=== PATIENT | female | born 1960 | race African-American/Black ===

== ENCOUNTER 2018-09-18 07:22 | Inpatient (IN) | payer OTHER ==
[~2018-09-18] VITALS: Ht 170.2 cm; Wt 72.5 kg
[2018-09-18 10:00] VITALS: BP 118/74; PULSE 68; RESP 18; Ht 170.2 cm; Wt 72.5 kg
[2018-09-18] MEDS ORDERED: HYDROmorphONE 0.5 MG/0.5 ML SYG IM STA (11:01)
[2018-09-18] MEDS ORDERED: HYDROmorphONE 0.5 MG/0.5 ML SYG IV STA (11:02)
[2018-09-18] MEDS ORDERED: ZOLPIDEM 5 MG TAB PO PRN (11:30)
[2018-09-18] MEDS ORDERED: DIPHENHYDRAMINE 50 MG INJ IV ONE (11:30)
[2018-09-18] MEDS ORDERED: ONDANSETRON 4 MG INJ IV PRN (11:30)
[2018-09-18] MEDS ORDERED: ACETAMINOPHEN 325 MG TAB PO PRN (11:30)
--- NOTE | 2018-09-18 11:36 | HP ---
Date/Time of Note Date/Time of Note DATE: 09/18/18 TIME: 11:27 Assessment/Plan VTE Prophylaxis SCD applied (from Nsg): Yes SCD contraindicated: low risk/ambulating Pharmacological prophylaxis: NA/contraindicated Pharm contraindication: bleeding Lines/Catheters IV Catheter Type (from Nrsg): Saline Lock Assessment/Plan Hospital Course 57-year-old female who presented with severe rectal pain and mild rectal b leeding and concern for rectal prolapse currently managed as follows: 1. Severe rectal pain secondary to opioid associated constipation 2. Subsequent rectal prolapse versus extrusion of large hemorrhoid 3. Hypertension, chronic with fair control 4. Recent ankle fracture Plan: We will stabilize the patient with pain control, give IV hydration to hopefully further rehydrate her to help with her stool consistency, also start her on stool softeners and fiber therapy. GI consultation to evaluate prolapse versus hemorrhoid, supportive care. Further interventions per course HPI/ROS Admit Date/Time Admit Date/Time Sep 18, 2018 at 09:27 Hx of Present Illness Pleasant 57-year-old female with a past medical history of high blood pressure, chronic hemorrhoids since her 30s, and jitteriness, who due to her natural twitching sustained a fall and ended up with an ankle fracture a few weeks ago. She has a large splint/cast on her right lower extremity and was put on opioid pain medicine for comfort due to the fracture. Unfortunately she developed severe constipation from that. Last night while she was in the bathroom trying to have a bowel movement, she states that her stool felt like a rock, and she was straining a lot and suddenly she felt a pop that was associated with severe pain and she also started noticing some bleeding in the bathroom. She called the nurse associated with her insurance company who suggested that she go to the emergency room. At the emergency room she was found to have protrusion from her rectum concerning for rectal prolapse and due to insurance reasons, she was referred to us for continued management and supportive care. At this time she is just complaining of severe rectal pain. She denies fever, denies vomiting, denies abdominal pain, denies chest pain or passing out episodes. She denies headaches or visual changes. ROS 12 point review if systems was done and pertinent findings are as noted. PMH/Family/Social Past Medical History * HTN * hemorrhoids * Recent R ankle fracture Medications Current Medications Diphenhydramine HCl (Benadryl) 25 mg ONCE ONCE IV ; Start 09/18/18 at 11:30; Stop 09/18/18 at 11:31; Status UNV Hydromorphone HCl (Dilaudid) 0.5 mg ONCE STAT IV ; Start 09/18/18 at 11:02; Stop 09/18/18 at 11:03; Status UNV Dextrose/Sodium Chloride 1,000 ml @ 80 mls/hr [id number] IV ; Start 09/18/18 at 11:20; Stop 09/19/18 at 12:19; Status UNV Ondansetron HCl (Zofran Inj) 4 mg Q6H PRN IV NAUSEA/VOMITING; Start 09/18/18 at 11:30; Status UNV Acetaminophen (Tylenol Tab) 650 mg Q6H PRN PO .PAIN 1-3 OR TEMP; Start 09/18/18 at 11:30; Status UNV Hydromorphone HCl (Dilaudid) 0.5 mg Q4H PRN IV .SEVERE PAIN 7-10; Start 09/18/18 at 11:30; Status UNV Docusate Sodium (Colace) 250 mg DAILY PO ; Start 09/18/18 at 11:30; Status UNV Zolpidem Tartrate (Ambien) 5 mg QHS PRN PO .INSOMNIA; Start 09/18/18 at 11:30; Status UNV Famotidine (Pepcid) 20 mg Q12 PO ; Start 09/18/18 at 21:00; Status UNV Polyethylene Glycol (Miralax) 17 gm DAILY PO ; Start 09/18/18 at 11:30; Status UNV Coded Allergies: morphine (Verified Allergy, Mild, 09/18/18) ITCHING Past Surgical History Past Surgical Hx: no surgical history Family History Significant Family History: no pertinent family hx Social History Alcohol Use: occasionally Smoking Status: Never smoker Drug Use: none Exam/Review of Systems Vital Signs Vitals Vital Signs Date Temp Pulse Resp B/P (MAP) Pulse Ox O2 O2 Flow FiO2 Time Delivery Rate 09/18/18 98.3 68 18 118/74 97 Room Air 10:00 (89) Exam Constitutional: alert, oriented Psych: anxiety Head: normocephalic Eyes: PERRL ENMT: mucosa pink and moist Neck: supple Respiratory: clear to auscultation Cardiovascular: regular rate and rhythm, nl pulses Gastrointestinal: soft, non-tender, bowel sounds, other Genitourinary - Female: nl adnexae, nl external genitalia BRIDGETTE LEÓN Sep 18, 2018 11:36
--- NOTE | 2018-09-18 12:47 | CONS ---
Assessment/Plan Assessment/Plan Hospital Course (Demo Recall) Summary Assessment and Plan: Assessment: Rectal prolapse Rectal pain 2/2 to above HTN Recent ankle facture 09/07 on norco at home Questionable history of hepatitis C Plan: Recommend surgical consult for reduction of rectal prolapse Questionable hx of Hepatitis- while in house will order hepatitis panel- if positive, pt to f/u with GI for possible treatment NPO for now- when diet starts will add daily fiber to prevent constipation Patient seen in collaboration with Dr. Rosario CC: NATHALIE ROSARIO ; Consultation Date/Type/Reason Admit Date/Time Sep 18, 2018 at 09:27 Date of Consultation: Sep 18, 2018 Type of Consult GI Reason for Consultation Rectal pain- Hemorrhoids vs rectal prolapse Date/Time of Note DATE: 09/18/18 TIME: 12:31 Hx of Present Illness 57-year-old female past medical history of hypertension and questionable hepatitis C who presented to the hospital with complaints of rectal pain. Patient states she recently fractured her ankle and was taking narcotic medication which subsequently caused constipation after attempting to go the bathroom with large amounts of pushing patient heard a pop and noted acute rectal pain she presented to [facility] but there she was diagnosed with rectal prolapse she was evaluated and manual rectal prolapse reduction was attempted at bedside however this was unsuccessful patient was deemed stable and transferred to [facility] for further evaluation. At time evaluation patient is resting in bed with rectal prolapse is noted on examination patient. Pain is currently being covered with pain medication she denies nausea/vomiting or abdominal pain. 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 Additionally with notes from [facility] it appears patient has a history of hepatitis C unclear if it has been treated in the past. Patient is also unclear if she indeed does have hepatitis. At this time will recommend surgical consult for possible reduction of rectal prolapse we will additionally check hepatitis panel. Further recognitions based on clinical course. Review of Systems: A 12 system, review was conducted and is negative except as noted in the HPI or here. Past Medical History Medications Current Medications Dextrose/Sodium Chloride 1,000 ml @ 80 mls/hr [id number] IV ; Start 09/18/18 at 11:20; Stop 09/19/18 at 12:19 Ondansetron HCl (Zofran Inj) 4 mg Q6H PRN IV NAUSEA/VOMITING; Start 09/18/18 at 11:30 Acetaminophen (Tylenol Tab) 650 mg Q6H PRN PO .PAIN 1-3 OR TEMP; Start 09/18/18 at 11:30 Hydromorphone HCl (Dilaudid) 0.5 mg Q4H PRN IV .SEVERE PAIN 7-10; Start 09/18/18 at 11:30 Docusate Sodium (Colace) 250 mg DAILY PO ; Start 09/18/18 at 11:30 Zolpidem Tartrate (Ambien) 5 mg QHS PRN PO .INSOMNIA; Start 09/18/18 at 11:30 Famotidine (Pepcid) 20 mg Q12 PO ; Start 09/18/18 at 21:00 Polyethylene Glycol (Miralax) 17 gm DAILY PO ; Start 09/18/18 at 11:30 Allergies: Coded Allergies: morphine (Verified Allergy, Mild, 09/18/18) ITCHING Past Surgical History Past Surgical Hx: no surgical history Social History Alcohol Use: occasionally Smoking Status: Never smoker Drug Use: none Exam/Review of Systems Exam Vitals Vital Signs Date Temp Pulse Resp B/P (MAP) Pulse Ox O2 O2 Flow FiO2 Time Delivery Rate 09/18/18 98.3 68 18 118/74 97 Room Air 10:00 (89) Exam PHYSICAL EXAMINATION: GENERAL: Well developed, well nourished, alert & oriented x 3, in no acute distress SKIN: No lesions EYES: Pupils equal reactive to light, no discharge. EARS/NOSE AND THROAT: Ears normal, nose normal, oropharynx normal NECK: Supple, no masses CHEST: Inspection within normal limits. CARDIOVASCULAR: Heart: Regular rate and rhythm, RESPIRATORY: Lungs clear to auscultation GASTROINTESTINAL AND LIVER: Abdomen: Soft, non tenderness, non-distended, no hernias, no masses, no rebound tenderness, normoactive bowel sounds. Rectal: rectal prolapse GENITOURINARY: Female genitalia within normal limits. EXTREMITIES: No cyanosis, clubbing or edema. Medications Medication Current Medications Dextrose/Sodium Chloride 1,000 ml @ 80 mls/hr [id number] IV ; Start 09/18/18 at 11:20; Stop 09/19/18 at 12:19 Ondansetron HCl (Zofran Inj) 4 mg Q6H PRN IV NAUSEA/VOMITING; Start 09/18/18 at 11:30 Acetaminophen (Tylenol Tab) 650 mg Q6H PRN PO .PAIN 1-3 OR TEMP; Start 09/18/18 at 11:30 Hydromorphone HCl (Dilaudid) 0.5 mg Q4H PRN IV .SEVERE PAIN 7-10; Start 09/18/18 at 11:30 Docusate Sodium (Colace) 250 mg DAILY PO ; Start 09/18/18 at 11:30 Zolpidem Tartrate (Ambien) 5 mg QHS PRN PO .INSOMNIA; Start 09/18/18 at 11:30 Famotidine (Pepcid) 20 mg Q12 PO ; Start 09/18/18 at 21:00 Polyethylene Glycol (Miralax) 17 gm DAILY PO ; Start 09/18/18 at 11:30 LUCY TAMEZ Sep 18, 2018 12:43
[2018-09-18] MEDS: DEXTROSE 5%-0.45% NACL 1,000 ML IV SCH (13:03)
[2018-09-18] MEDS: DOCUSATE SODIUM 100 MG CAP PO SCH (13:08)
[2018-09-18] MEDS: POLYETHYLENE GLYCOL 17 GM PACKET PO SCH (13:08)
[2018-09-18 14:35] VITALS: BP 105/67; PULSE 65; RESP 18
--- NOTE | 2018-09-18 16:54 | CONS ---
Assessment/Plan Assessment/Plan Hospital Course (Demo Recall) 1. External hemorrhoids: Grade IV; no rectal prolapse appreciated; nonreducible -Supportive: Pain management, sits baths, corticosteroid ointments, topical analgesics -Salt or sugar to reduce swelling -Bowel regimen 2. Rectal pain: -Pain management as above-preferably with nonnarcotics 3. Recent ankle fracture: -Medical management preferably with nonnarcotics 4. Hypertension: Medical management Thank you. Patient seen and examined in collaboration with Dr. Curt Jeter. Consultation Date/Type/Reason Admit Date/Time Sep 18, 2018 at 09:27 Date of Consultation: Sep 18, 2018 Type of Consult Surgical Reason for Consultation Rectal pain, questionable rectal prolapse Requesting Provider: BRIDGETTE LEÓN Date/Time of Note DATE: 09/18/18 TIME: 16:37 Hx of Present Illness Jean Carlos Bean is a 57-year-old woman with past medical history of high blood pressure, chronic hemorrhoids, recent right ankle fracture and jitteriness who sustained a fracture from a recent fall a few weeks ago. Due to her recent fracture, she has been taking opioid medication and has recently developed constipation. Last night while trying to have a bowel movement, she reports straining and felt a pop associated with severe pain and some bleeding noted in the toilet. She presented to outside hospital was found to have a protrusion from her rectum. She continues to have + bowel function. She denies fevers, chills, abdominal pain, shortness of breath, current rectal bleeding. General surgery was asked to evaluate. 12 point review of systems was performed and is negative except for as stated in HPI. Past Medical History As above Medications Current Medications Dextrose/Sodium Chloride 1,000 ml @ 80 mls/hr [id number] IV Last administered on 09/18/18at 13:03; Admin Dose 80 MLS/HR; Start 09/18/18 at 11:20; Stop 09/19/18 at 12:19 Ondansetron HCl (Zofran Inj) 4 mg Q6H PRN IV NAUSEA/VOMITING; Start 09/18/18 at 11:30 Acetaminophen (Tylenol Tab) 650 mg Q6H PRN PO .PAIN 1-3 OR TEMP; Start 09/18/18 at 11:30 Hydromorphone HCl (Dilaudid) 0.5 mg Q4H PRN IV .SEVERE PAIN 7-10; Start 09/18/18 at 11:30 Docusate Sodium (Colace) 250 mg DAILY PO Last administered on 09/18/18at 13:08; Admin Dose 250 MG; Start 09/18/18 at 11:30 Zolpidem Tartrate (Ambien) 5 mg QHS PRN PO .INSOMNIA; Start 09/18/18 at 11:30 Famotidine (Pepcid) 20 mg Q12 PO ; Start 09/18/18 at 21:00 Polyethylene Glycol (Miralax) 17 gm DAILY PO Last administered on 09/18/18at 13:08; Admin Dose 17 GM; Start 09/18/18 at 11:30 Allergies: Coded Allergies: morphine (Verified Allergy, Mild, 09/18/18) ITCHING Past Surgical History Past Surgical Hx: no surgical history Family History Significant Family History: no pertinent family hx Social History Alcohol Use: occasionally Smoking Status: Never smoker Drug Use: none Exam/Review of Systems Exam Vitals Vital Signs Date Temp Pulse Resp B/P (MAP) Pulse Ox O2 O2 Flow FiO2 Time Delivery Rate 09/18/18 98.2 65 18 105/67 100 14:35 (80) 09/18/18 Room Air 10:00 Constitutional: alert, oriented, well developed Psych: nl mood/affect, anxiety Head: normocephalic, atraumatic Eyes: nl conjunctiva, EOMI, nl lids, nl sclera ENMT: nl external ears & nose, nl lips & teeth, nl nasal mucosa & septum, mucosa pink and moist Neck: supple, non-tender; No jvd Respiratory: normal air movement; No congested cough, No labored breathing Cardiovascular: regular rate and rhythm, nl pulses Gastrointestinal: soft, non-tender, other (Rectal: Large, edematous hemorrhoids; no bleeding; good sphincter tone: Tender; no rectal prolapse noted;); No distended Results Results 24hrs Laboratory Tests Test 09/18/18 13:58 Prothrombin Time 12.2 Prothrombin Time Ratio 1.0 INR International Normalized Ratio 0.89 Activated Partial Thromboplast Time 28.7 Phosphorus Level 5.2 H Magnesium Level 1.7 Hepatitis B Surface Antigen NEGATIVE Hepatitis B Surface Antibody NEGATIVE Hepatitis C Antibody NEGATIVE Medications Medication Current Medications Dextrose/Sodium Chloride 1,000 ml @ 80 mls/hr [id number] IV Last administered on 09/18/18 13:03; Admin Dose 80 MLS/HR; Start 09/18/18 at 11:20; Stop 09/19/18 at 12:19 Ondansetron HCl (Zofran Inj) 4 mg Q6H PRN IV NAUSEA/VOMITING; Start 09/18/18 at 11:30 Acetaminophen (Tylenol Tab) 650 mg Q6H PRN PO .PAIN 1-3 OR TEMP; Start 09/18/18 at 11:30 Hydromorphone HCl (Dilaudid) 0.5 mg Q4H PRN IV .SEVERE PAIN 7-10; Start 09/18/18 at 11:30 Docusate Sodium (Colace) 250 mg DAILY PO Last administered on 09/18/18at 13:08; Admin Dose 250 MG; Start 09/18/18 at 11:30 Zolpidem Tartrate (Ambien) 5 mg QHS PRN PO .INSOMNIA; Start 09/18/18 at 11:30 Famotidine (Pepcid) 20 mg Q12 PO ; Start 09/18/18 at 21:00 Polyethylene Glycol (Miralax) 17 gm DAILY PO Last administered on 09/18/18at 13:08; Admin Dose 17 GM; Start 09/18/18 at 11:30 KELLI STEINBERG NP Sep 18, 2018 16:51
[2018-09-18 20:39] VITALS: BP 94/56; PULSE 71; RESP 18
[2018-09-18] MEDS: HYDROCORTISONE 25 MG SUPP PR SCH (21:32)
[2018-09-18] MEDS: FAMOTIDINE 20 MG TAB PO SCH (21:32)
[2018-09-19 02:22] VITALS: BP 109/68; PULSE 71
[2018-09-19] MEDS: DEXTROSE 5%-0.45% NACL 1,000 ML IV SCH (02:49)
[2018-09-19 08:00] VITALS: BP_SYST 140; BP_SYST 157; BP_DIAS 69; BP_DIAS 82; PULSE 100; PULSE 87; RESP 18
[2018-09-19] MEDS: HYDROmorphONE 0.5 MG/0.5 ML SYG IV PRN ×4 (08:50→20:59)
[2018-09-19] MEDS: DOCUSATE SODIUM 100 MG CAP PO SCH (08:52)
[2018-09-19] MEDS: FAMOTIDINE 20 MG TAB PO SCH ×2 (08:53→20:56)
[2018-09-19] MEDS: HYDROCORTISONE 25 MG SUPP PR SCH ×3 (08:53→23:43)
[2018-09-19] MEDS: POLYETHYLENE GLYCOL 17 GM PACKET PO SCH (08:53)
--- NOTE | 2018-09-19 13:18 | PN ---
Date/Time of Note Date/Time of Note DATE: 09/19/18 TIME: 13:14 Assessment/Plan VTE Prophylaxis Risk score (from Ns)>0 risk: 2 SCD applied (from Ns): No SCD contraindicated: other (scds) Pharmacological prophylaxis: other (scds) Lines/Catheters IV C[facility]ter [facility] (from [facility]): Peripheral IV Assessment/Plan Hospital Course Summary Assessment and Plan: Assessment: Rectal prolapse Rectal pain 2/2 to above HTN Recent ankle facture 09/07 on norco at home Questionable history of hepatitis C- Viral serology negative Normocytic anemia Plan: F/u surgical recommendations Hydrocortisone cream, sitz baths Avoid constipation Advance diet as tolerated Continue MiraLAX daily to prevent constipation GI will sign off but will be available upon reconsult as needed Patient seen in collaboration with Dr. Leone Subjective: Course reviewed with nursing staff Patient interviewed and examined All labs, imaging and other results reviewed The patient sitting up in chair feels better today No over night events, no overt signs of GI bleed. Continue current regimen. PHYSICAL EXAMINATION: GENERAL: Well developed, well nourished, alert & oriented x 3, in no acute distress SKIN: No lesions EYES: Pupils equal reactive to light, no discharge. EARS/NOSE AND THROAT: Ears normal, nose normal, oropharynx normal NECK: Supple, no masses CHEST: Inspection within normal limits. CARDIOVASCULAR: Heart: Regular rate and rhythm, RESPIRATORY: Lungs clear to auscultation GASTROINTESTINAL AND LIVER: Abdomen: Soft, non tenderness, non-distended, no hernias, no masses, no rebound tenderness, normoactive bowel sounds. Rectal: rectal prolapse GENITOURINARY: Female genitalia within normal limits. EXTREMITIES: No cyanosis, clubbing or edema. Result Diagram: 09/19/18 0543 09/19/18 0543 Results 24hrs Laboratory Tests Test 09/18/18 13:58 09/19/18 05:43 Prothrombin Time 12.2 Prothrombin Time Ratio 1.0 INR International Normalized Ratio 0.89 Activated Partial Thromboplast Time 28.7 Phosphorus Level 5.2 H Magnesium Level 1.7 Hepatitis B Surface Antigen NEGATIVE Hepatitis B Surface Antibody NEGATIVE Hepatitis C Antibody NEGATIVE White Blood Count 4.6 L Red Blood Count 2.58 L Hemoglobin 8.0 L Hematocrit 24.5 L Mean Corpuscular Volume 95.0 Mean Corpuscular Hemoglobin 31.0 Mean Corpuscular Hemoglobin Concent 32.7 Red Cell Distribution Width 15.5 H Platelet Count 484 H Mean Platelet Volume 9.8 Immature Granulocytes % 0.200 Neutrophils % 44.9 Lymphocytes % 42.1 Monocytes % 9.1 Eosinophils % 3.0 Basophils % 0.7 Nucleated Red Blood Cells % 0.0 Immature Granulocytes # 0.010 Neutrophils # 2.1 Lymphocytes # 1.9 Monocytes # 0.4 Eosinophils # 0.1 Basophils # 0.0 Nucleated Red Blood Cells # 0.0 Sodium Level 144 Potassium Level 3.2 L Chloride Level 103 Carbon Dioxide Level 28 Anion Gap 13 Blood Urea Nitrogen 12 Creatinine 0.70 Est Glomerular Filtrat Rate mL/min > 60 Glucose Level 108 Calcium Level 9.2 Exam/Review of Systems Exam Vitals Vital Signs Date Temp Pulse Resp B/P (MAP) Pulse Ox O2 O2 Flow FiO2 Time Delivery Rate 09/19/18 98.8 87 18 140/69 96 08:00 (92) 09/18/18 Room Air 10:00 Intake and Output 09/18/18 09/18/18 09/19/18 1515:00 23:00 07:00 IntakeIntake Total 120 ml 520 ml 1140 ml OutputOutput Total 600 ml BalanceBalance 120 ml 520 ml 540 ml Results Results 24hrs Laboratory Tests Test 09/18/18 13:58 09/19/18 05:43 Prothrombin Time 12.2 Prothrombin Time Ratio 1.0 INR International Normalized Ratio 0.89 Activated Partial Thromboplast Time 28.7 Phosphorus Level 5.2 H Magnesium Level 1.7 Hepatitis B Surface Antigen NEGATIVE Hepatitis B Surface Antibody NEGATIVE Hepatitis C Antibody NEGATIVE White Blood Count 4.6 L Red Blood Count 2.58 L Hemoglobin 8.0 L Hematocrit 24.5 L Mean Corpuscular Volume 95.0 Mean Corpuscular Hemoglobin 31.0 Mean Corpuscular Hemoglobin Concent 32.7 Red Cell Distribution Width 15.5 H Platelet Count 484 H Mean Platelet Volume 9.8 Immature Granulocytes % 0.200 Neutrophils % 44.9 Lymphocytes % 42.1 Monocytes % 9.1 Eosinophils % 3.0 Basophils % 0.7 Nucleated Red Blood Cells % 0.0 Immature Granulocytes # 0.010 Neutrophils # 2.1 Lymphocytes # 1.9 Monocytes # 0.4 Eosinophils # 0.1 Basophils # 0.0 Nucleated Red Blood Cells # 0.0 Sodium Level 144 Potassium Level 3.2 L Chloride Level 103 Carbon Dioxide Level 28 Anion Gap 13 Blood Urea Nitrogen 12 Creatinine 0.70 Est Glomerular Filtrat Rate mL/min > 60 Glucose Level 108 Calcium Level 9.2 Medications Medication Current Medications Ondansetron HCl (Zofran Inj) 4 mg Q6H PRN IV NAUSEA/VOMITING; Start 09/18/18 at 11:30 Acetaminophen (Tylenol Tab) 650 mg Q6H PRN PO .PAIN 1-3 OR TEMP; Start 09/18/18 at 11:30 Hydromorphone HCl (Dilaudid) 0.5 mg Q4H PRN IV .SEVERE PAIN 7-10 Last administered on 09/19/18 12:36; Admin Dose 0.5 MG; Start 09/18/18 at 11:30 Docusate Sodium (Colace) 250 mg DAILY PO Last administered on 09/19/18 08:52; Admin Dose 250 MG; Start 09/18/18 at 11:30 Zolpidem Tartrate (Ambien) 5 mg QHS PRN PO .INSOMNIA; Start 09/18/18 at 11:30 Famotidine (Pepcid) 20 mg Q12 PO Last administered on 09/19/18 08:53; Admin Dose 20 MG; Start 09/18/18 at 21:00 Polyethylene Glycol (Miralax) 17 gm DAILY PO Last administered on 09/19/18 08:53; Admin Dose 17 GM; Start 09/18/18 at 11:30 Hydrocortisone (Anusol-Hc Supp) 25 mg BID [place] Last administered on 09/19/18 08:53; Admin Dose 25 MG; Start 09/18/18 at 21:00 LUCY TAMEZ Sep 19, 2018 13:18
--- NOTE | 2018-09-19 13:37 | PN ---
Date/Time of Note Date/Time of Note DATE: 09/19/18 TIME: 13:33 Assessment/Plan Lines/Catheters IV Catheter Type (from Nrsg): Peripheral IV Assessment/Plan Chief Complaint/Hosp Course 1. External hemorrhoids: Grade IV; no rectal prolapse appreciated; nonreducible -Continue supportive: Pain management, sits baths, corticosteroid ointments, topical analgesics -Continue salt or sugar to reduce swelling -Bowel regimen> had long discussion with patient regarding need to increase fiber and fluids; will also add stool softeners -We will likely benefit from eventual hemorrhoid surgery 2. Rectal pain: Improved -Pain management as above-preferably with nonnarcotics 3. Recent ankle fracture: -Medical management preferably with nonnarcotics 4. Hypertension: Medical management Thank you. Patient seen and examined in collaboration with Dr. Curt Jeter. Subjective 24 Hr Interval Summary Feels much better. Rectal pain improved. Hemorrhoids less swollen. No fevers, chills, sob, congested cough, cp, palpitations, kraus, dizziness, nausea, vomiting, diarrhea, dysuria. Exam/Review of Systems Vital Signs Vitals Vital Signs Date Temp Pulse Resp B/P (MAP) Pulse Ox O2 O2 Flow FiO2 Time Delivery Rate 09/19/18 98.8 87 18 140/69 96 08:00 (92) 09/18/18 Room Air 10:00 Intake and Output 09/18/18 09/18/18 09/19/18 1414:59 22:59 06:59 IntakeIntake Total 120 ml 520 ml 1140 ml OutputOutput Total 600 ml BalanceBalance 120 ml 520 ml 540 ml Exam Free Text/Dictation Constitutional: alert, oriented, well developed Psych: nl mood/affect, anxiety Head: normocephalic, atraumatic Eyes: nl conjunctiva, EOMI, nl lids, nl sclera ENMT: nl external ears & nose, nl lips & teeth, nl nasal mucosa & septum, mucosa pink and moist Neck: supple, non-tender; No jvd Respiratory: normal air movement; No congested cough, No labored breathing Cardiovascular: regular rate and rhythm, nl pulses Gastrointestinal: soft, non-tender, other (Rectal: Large, edematous hemorrhoids (edema much improved); no bleeding; good sphincter tone: Tender (improved); no rectal prolapse noted;); No distended Results Result Diagram: 09/19/18 0543 09/19/18 0543 KELLI STEINBERG NP Sep 19, 2018 13:37
[2018-09-19 14:00] VITALS: BP 114/62; RESP 18
--- NOTE | 2018-09-19 16:40 | PN ---
Date/Time of Note Date/Time of Note DATE: 09/19/18 TIME: 16:40 Assessment/Plan VTE Prophylaxis Risk score (from Ns)>0 risk: 2 SCD applied (from Ns): Yes Pharmacological prophylaxis: NA/contraindicated Pharm contraindication: low risk/ambulating Lines/Catheters IV Catheter Type (from Nrsg): Peripheral IV Assessment/Plan Hospital Course S: pain is not controlled as yet Objective : Constitutional: alert, oriented, anxious Head: atraumatic, normocephalic Neck: non-tender, supple Respiratory: clear to auscultation Cardiovascular: regular rate and rhythm Gastrointestinal: S/ NT / ND / +BS Rectal: hemorrhoids vs prolapse with rectal pain Extremities: no edema, good radial pulses, Large cast R ankle assessmentt and plan: 57-year-old female who presented with severe rectal pain and mild rectal bleeding and concern for rectal prolapse currently managed as follows: 1. Severe rectal pain 2/ 32 2. Subsequent rectal prolapse versus extrusion of large hemorrhoid secondary to straining from opioid associated constipation 3. Hypertension, chronic with fair control 4. Recent ankle fracture 5. Opiod associated constipation PLAN: -per GI, patient has combination of prolapse and hemorrhoids, -bedside reduction attempted but unsuccessful -Non surgical for now per surgery, recommends pain control and suppositories for now till inflammation improves then hemorrhoidectomy as o/p -await symptomatic improvement, then d/c when cleared Result Diagram: 09/19/18 0543 09/19/18 0543 Results 24hrs Laboratory Tests Test 09/19/18 05:43 White Blood Count 4.6 L Red Blood Count 2.58 L Hemoglobin 8.0 L Hematocrit 24.5 L Mean Corpuscular Volume 95.0 Mean Corpuscular Hemoglobin 31.0 Mean Corpuscular Hemoglobin Concent 32.7 Red Cell Distribution Width 15.5 H Platelet Count 484 H Mean Platelet Volume 9.8 Immature Granulocytes % 0.200 Neutrophils % 44.9 Lymphocytes % 42.1 Monocytes % 9.1 Eosinophils % 3.0 Basophils % 0.7 Nucleated Red Blood Cells % 0.0 Immature Granulocytes # 0.010 Neutrophils # 2.1 Lymphocytes # 1.9 Monocytes # 0.4 Eosinophils # 0.1 Basophils # 0.0 Nucleated Red Blood Cells # 0.0 Sodium Level 144 Potassium Level 3.2 L Chloride Level 103 Carbon Dioxide Level 28 Anion Gap 13 Blood Urea Nitrogen 12 Creatinine 0.70 Est Glomerular Filtrat Rate mL/min > 60 Glucose Level 108 Calcium Level 9.2 Exam/Review of Systems Exam Vitals Vital Signs Date Temp Pulse Resp B/P (MAP) Pulse Ox O2 O2 Flow FiO2 Time Delivery Rate 09/19/18 98.6 18 114/62 96 14:00 (79) 09/19/18 87 08:00 09/18/18 Room Air 10:00 Intake and Output 09/18/18 09/18/18 09/19/18 1515:00 23:00 07:00 IntakeIntake Total 120 ml 520 ml 1140 ml OutputOutput Total 600 ml BalanceBalance 120 ml 520 ml 540 ml Results Results 24hrs Laboratory Tests Test 09/19/18 05:43 White Blood Count 4.6 L Red Blood Count 2.58 L Hemoglobin 8.0 L Hematocrit 24.5 L Mean Corpuscular Volume 95.0 Mean Corpuscular Hemoglobin 31.0 Mean Corpuscular Hemoglobin Concent 32.7 Red Cell Distribution Width 15.5 H Platelet Count 484 H Mean Platelet Volume 9.8 Immature Granulocytes % 0.200 Neutrophils % 44.9 Lymphocytes % 42.1 Monocytes % 9.1 Eosinophils % 3.0 Basophils % 0.7 Nucleated Red Blood Cells % 0.0 Immature Granulocytes # 0.010 Neutrophils # 2.1 Lymphocytes # 1.9 Monocytes # 0.4 Eosinophils # 0.1 Basophils # 0.0 Nucleated Red Blood Cells # 0.0 Sodium Level 144 Potassium Level 3.2 L Chloride Level 103 Carbon Dioxide Level 28 Anion Gap 13 Blood Urea Nitrogen 12 Creatinine 0.70 Est Glomerular Filtrat Rate mL/min > 60 Glucose Level 108 Calcium Level 9.2 Medications Medication Current Medications Ondansetron HCl (Zofran Inj) 4 mg Q6H PRN IV NAUSEA/VOMITING; Start 09/18/18 at 11:30 Acetaminophen (Tylenol Tab) 650 mg Q6H PRN PO .PAIN 1-3 OR TEMP; Start 09/18/18 at 11:30 Hydromorphone HCl (Dilaudid) 0.5 mg Q4H PRN IV .SEVERE PAIN 7-10 Last administered on 09/19/18at 12:36; Admin Dose 0.5 MG; Start 09/18/18 at 11:30 Docusate Sodium (Colace) 250 mg DAILY PO Last administered on 09/19/18 08:52; Admin Dose 250 MG; Start 09/18/18 at 11:30 Zolpidem Tartrate (Ambien) 5 mg QHS PRN PO .INSOMNIA; Start 09/18/18 at 11:30 Famotidine (Pepcid) 20 mg Q12 PO Last administered on 09/19/18 08:53; Admin Dose 20 MG; Start 09/18/18 at 21:00 Polyethylene Glycol (Miralax) 17 gm DAILY PO Last administered on 09/19/18 08:53; Admin Dose 17 GM; Start 09/18/18 at 11:30 Hydrocortisone (Anusol-Hc Supp) 25 mg BID VA Last administered on 09/19/18 08:53; Admin Dose 25 MG; Start 09/18/18 at 21:00 BRIDGETTE LEÓN Sep 19, 2018 16:40
[2018-09-19 20:00] VITALS: BP 135/66; PULSE 79; RESP 17
[2018-09-19] MEDS ORDERED: POTASSIUM CHLORIDE (SR) 20 MEQ TAB PO ONE (23:00)
[2018-09-20 02:00] VITALS: BP 129/78; PULSE 71; RESP 18
[2018-09-20] MEDS: HYDROmorphONE 0.5 MG/0.5 ML SYG IV PRN ×4 (06:14→20:40)
[2018-09-20 08:00] VITALS: BP 152/93; PULSE 76; RESP 20
[2018-09-20] MEDS: HYDROCORTISONE 25 MG SUPP PR SCH ×2 (08:59→22:03)
[2018-09-20] MEDS: FAMOTIDINE 20 MG TAB PO SCH ×2 (08:59→20:43)
[2018-09-20] MEDS: POLYETHYLENE GLYCOL 17 GM PACKET PO SCH (08:59)
[2018-09-20] MEDS ORDERED: DOCUSATE SODIUM 250 MG CAP PO SCH (09:00)
[2018-09-20] MEDS ORDERED: MAGNESIUM SULFATE 454 GM JAR TOP PRN (11:00)
[2018-09-20] MEDS: DOCUSATE SODIUM 10 MG/ML (10ML CUP) PO SCH (12:00)
[2018-09-20] MEDS ORDERED: IBUPROFEN 600 MG TAB PO PRN (12:00)
[2018-09-20] MEDS ORDERED: IBUPROFEN 600 MG TAB PO SCH (12:00)
--- NOTE | 2018-09-20 12:05 | PN ---
Date/Time of Note Date/Time of Note DATE: 09/20/18 TIME: 12:00 Assessment/Plan Lines/Catheters IV Catheter Type (from Nrsg): Saline Lock Assessment/Plan Chief Complaint/Hosp Course 1. External hemorrhoids: Grade IV; no rectal prolapse appreciated; nonreducible> much improved -Continue supportive: Pain management, sitz baths, corticosteroid ointments, topical analgesics -Continue salt or sugar to reduce swelling -Bowel regimen> had long discussion with patient regarding need to increase fiber and fluids; will also add stool softeners -We will likely benefit from eventual hemorrhoid surgery -DC planning okay from surgical standpoint 2. Rectal pain: Improved -Pain management as above-preferably with nonnarcotics 3. Recent ankle fracture: -Medical management preferably with nonnarcotics 4. Hypertension: Medical management Thank you. Patient seen and examined in collaboration with Dr. Curt Jeter. Subjective 24 Hr Interval Summary Feels much better. Hemorrhoidal swelling much improved. No fevers, chills, sob, congested cough, cp, palpitations, kraus, dizziness, nausea, vomiting, diarrhea, dysuria. Exam/Review of Systems Vital Signs Vitals Vital Signs Date Temp Pulse Resp B/P (MAP) Pulse Ox O2 O2 Flow FiO2 Time Delivery Rate 09/20/18 98.6 76 20 152/93 96 08:00 (112) 09/18/18 Room Air 10:00 Intake and Output 09/19/18 09/19/18 09/20/18 1515:00 23:00 07:00 IntakeIntake Total 840 ml 200 ml BalanceBalance 840 ml 200 ml Exam Free Text/Dictation Constitutional: alert, oriented, well developed Psych: nl mood/affect, anxiety Head: normocephalic, atraumatic Eyes: nl conjunctiva, EOMI, nl lids, nl sclera ENMT: nl external ears & nose, nl lips & teeth, nl nasal mucosa & septum, mucosa pink and moist Neck: supple, non-tender; No jvd Respiratory: normal air movement; No congested cough, No labored breathing Cardiovascular: regular rate and rhythm, nl pulses Gastrointestinal: soft, non-tender, other (Rectal: Large, hemorrhoids (edema continuing to improve); no bleeding; good sphincter tone: Tender (improved); no rectal prolapse noted;); No distended Results Result Diagram: 09/20/18 0559 09/20/18 0559 KELLI STEINBERG NP Sep 20, 2018 12:05
--- NOTE | 2018-09-20 12:39 | PN ---
Date/Time of Note Date/Time of Note DATE: 09/20/18 TIME: 12:36 Assessment/Plan VTE Prophylaxis Risk score (from Ns)>0 risk: 3 SCD applied (from Ns): Yes Pharmacological prophylaxis: NA/contraindicated Pharm contraindication: low risk/ambulating Lines/Catheters IV Catheter Type (from Nrs): Saline Lock Assessment/Plan Hospital Course S: still having rectal pain, but controlled with meds spoke with surgery and GI Objective : Constitutional: alert, oriented, anxious Head: atraumatic, normocephalic Neck: non-tender, supple Respiratory: clear to auscultation Cardiovascular: regular rate and rhythm Gastrointestinal: S/ NT / ND / +BS Rectal: on gross exam, hemorrhoids are smaller, but splitting machine tender Extremities: no edema, good radial pulses, Large cast R ankle assessmentt and plan: 57-year-old female who presented with severe rectal pain and mild rectal bleeding and concern for rectal prolapse currently managed as follows: 1. Severe rectal pain 2/2 32 2. Subsequent rectal prolapse versus extrusion of large hemorrhoid secondary to straining from opioid associated constipation 3. Hypertension, chronic with fair control 4. Recent ankle fracture 5. Opiod associated constipation PLAN: -per GI, patient has combination of prolapse and hemorrhoids, -bedside reduction attempted but unsuccessful -Non surgical for now per surgery, recommends pain control and suppositories for now till inflammation improves then hemorrhoidectomy as o/p -nsaid added to pain regimen as well as topical lidocaine -will begin transition to oral meds in preparation for discharge Result Diagram: 09/20/18 0559 09/20/18 0559 Results 24hrs Laboratory Tests Test 09/20/18 05:59 09/20/18 11:27 White Blood Count 5.3 Red Blood Count 2.55 L Hemoglobin 7.9 L Hematocrit 24.1 L Mean Corpuscular Volume 94.5 Mean Corpuscular Hemoglobin 31.0 Mean Corpuscular Hemoglobin Concent 32.8 Red Cell Distribution Width 15.4 H Platelet Count 489 H Mean Platelet Volume 9.9 Immature Granulocytes % 0.600 H Neutrophils % 53.9 Lymphocytes % 34.2 Monocytes % 7.1 Eosinophils % 3.6 Basophils % 0.6 Nucleated Red Blood Cells % 0.0 Immature Granulocytes # 0.030 Neutrophils # 2.9 Lymphocytes # 1.8 Monocytes # 0.4 Eosinophils # 0.2 Basophils # 0.0 Nucleated Red Blood Cells # 0.0 Sodium Level 144 Potassium Level 3.7 Chloride Level 107 Carbon Dioxide Level 27 Anion Gap 10 Blood Urea Nitrogen 6 L Creatinine 0.72 Est Glomerular Filtrat Rate mL/min > 60 Glucose Level 92 Calcium Level 9.9 Total Bilirubin 0.5 Direct Bilirubin 0.00 Indirect Bilirubin 0.5 Aspartate Amino Transf (AST/SGOT) 39 Alanine Aminotransferase (ALT/SGPT) 24 Alkaline Phosphatase 117 Total Protein 7.2 Albumin 3.7 Globulin 3.50 H Albumin/Globulin Ratio 1.05 Lab Scanned Report REFERENCE LAB Exam/Review of Systems Exam Vitals Vital Signs Date Temp Pulse Resp B/P (MAP) Pulse Ox O2 O2 Flow FiO2 Time Delivery Rate 09/20/18 98.6 76 20 152/93 96 08:00 (112) 09/18/18 Room Air 10:00 Intake and Output 09/19/18 09/19/18 09/20/18 1515:00 23:00 07:00 IntakeIntake Total 840 ml 200 ml BalanceBalance 840 ml 200 ml Results Results 24hrs Laboratory Tests Test 09/20/18 05:59 09/20/18 11:27 White Blood Count 5.3 Red Blood Count 2.55 L Hemoglobin 7.9 L Hematocrit 24.1 L Mean Corpuscular Volume 94.5 Mean Corpuscular Hemoglobin 31.0 Mean Corpuscular Hemoglobin Concent 32.8 Red Cell Distribution Width 15.4 H Platelet Count 489 H Mean Platelet Volume 9.9 Immature Granulocytes % 0.600 H Neutrophils % 53.9 Lymphocytes % 34.2 Monocytes % 7.1 Eosinophils % 3.6 Basophils % 0.6 Nucleated Red Blood Cells % 0.0 Immature Granulocytes # 0.030 Neutrophils # 2.9 Lymphocytes # 1.8 Monocytes # 0.4 Eosinophils # 0.2 Basophils # 0.0 Nucleated Red Blood Cells # 0.0 Sodium Level 144 Potassium Level 3.7 Chloride Level 107 Carbon Dioxide Level 27 Anion Gap 10 Blood Urea Nitrogen 6 L Creatinine 0.72 Est Glomerular Filtrat Rate mL/min > 60 Glucose Level 92 Calcium Level 9.9 Total Bilirubin 0.5 Direct Bilirubin 0.00 Indirect Bilirubin 0.5 Aspartate Amino Transf (AST/SGOT) 39 Alanine Aminotransferase (ALT/SGPT) 24 Alkaline Phosphatase 117 Total Protein 7.2 Albumin 3.7 Globulin 3.50 H Albumin/Globulin Ratio 1.05 Lab Scanned Report REFERENCE LAB Medications Medication Current Medications Ondansetron HCl (Zofran Inj) 4 mg Q6H PRN IV NAUSEA/VOMITING; Start 09/18/18 at 11:30 Acetaminophen (Tylenol Tab) 650 mg Q6H PRN PO .PAIN 1-3 OR TEMP; Start 09/18/18 at 11:30 Hydromorphone HCl (Dilaudid) 0.5 mg Q4H PRN IV .SEVERE PAIN 7-10 Last administered on 09/20/18 10:32; Admin Dose 0.5 MG; Start 09/18/18 at 11:30 Zolpidem Tartrate (Ambien) 5 mg QHS PRN PO .INSOMNIA; Start 09/18/18 at 11:30 Famotidine (Pepcid) 20 mg Q12 PO Last administered on 09/20/18 08:59; Admin Dose 20 MG; Start 09/18/18 at 21:00 Polyethylene Glycol (Miralax) 17 gm DAILY PO Last administered on 09/20/18 08:59; Admin Dose 17 GM; Start 09/18/18 at 11:30 Hydrocortisone (Anusol-Hc Supp) 25 mg BID IN Last administered on 09/20/18 08:59; Admin Dose 25 MG; Start 09/18/18 at 21:00 Magnesium Sulfate (Epsom Salt) 1 APPLICATION with s... DAILY PRN TOP PAIN; Start 09/20/18 at 11:00 Ibuprofen (Motrin) 600 mg Q6H PRN PO PAIN Last administered on 09/20/18 12:01; Admin Dose 600 MG; Start 09/20/18 at 12:00 Docusate Sodium (Colace Liquid Cup) 250 mg DAILY PO Last administered on 12:00; Admin Dose 250 MG; Start 09/20/18 at 11:33 BRIDGETTE LEÓN Sep 20, 2018 12:39
[2018-09-20] MEDS ORDERED: HYDROmorphONE 1 MG/ML SYG IV ONE (13:00)
[2018-09-20 14:00] VITALS: BP 135/77; PULSE 84; RESP 18
[2018-09-20] MEDS ORDERED: LIDOCAINE 5% 35 GM OINT TOP PRN (14:30)
[2018-09-20] MEDS ORDERED: ZINC OXIDE 13% (DESITIN) CREAM 2 OZ TUBE TOP PRN (16:00)
[2018-09-20] MEDS ORDERED: traMADol-APAP 37.5-325 1 TAB PO PRN (16:00)
[2018-09-20] MEDS: SKIN RESP FACT/SHARK/PH MERCU SUPP PR SCH (18:57)
[2018-09-20 20:00] VITALS: BP 130/88; PULSE 82; RESP 18
[2018-09-20] MEDS: HEPARIN 5,000 UNIT/1 ML VIAL SC SCH (20:39)
[2018-09-21] MEDS: SKIN RESP FACT/SHARK/PH MERCU SUPP PR SCH ×3 (00:59→16:32)
[2018-09-21] MEDS: HYDROmorphONE 0.5 MG/0.5 ML SYG IV PRN ×4 (00:59→20:27)
[2018-09-21 02:00] VITALS: BP 139/72; PULSE 73; RESP 17
[2018-09-21] MEDS: traMADol-APAP 37.5-325 1 TAB PO PRN ×3 (03:42→21:12)
[2018-09-21 07:15] VITALS: BP 141/88; PULSE 88; RESP 16
[2018-09-21] MEDS ORDERED: POTASSIUM CHLORIDE (SR) 20 MEQ TAB PO STA ×2 (07:43→14:58)
[2018-09-21] MEDS: HYDROCORTISONE 25 MG SUPP PR SCH ×2 (09:50→20:25)
[2018-09-21] MEDS: HEPARIN 5,000 UNIT/1 ML VIAL SC SCH ×2 (09:52→20:24)
[2018-09-21] MEDS: POLYETHYLENE GLYCOL 17 GM PACKET PO SCH (09:53)
[2018-09-21] MEDS: FAMOTIDINE 20 MG TAB PO SCH ×2 (09:53→20:20)
[2018-09-21] MEDS ORDERED: MAGNESIUM SULFATE 454 GM JAR TOP PRN (13:30)
[2018-09-21 14:19] VITALS: BP 135/80; PULSE 78; RESP 18
--- NOTE | 2018-09-21 15:06 | PN ---
Date/Time of Note Date/Time of Note DATE: 09/21/18 TIME: 15:04 Assessment/Plan VTE Prophylaxis Risk score (from Ns)>0 risk: 3 SCD applied (from [facility] [place]): No SCD contraindicated: bilateral LE trauma Pharmacological prophylaxis: heparin Lines/Catheters IV Catheter Type (from Rust): Saline Lock Urinary Cath still in place: No Assessment/Plan Problems: (1) Hemorrhoids Status: Chronic Comment: Patient's improving slowly but steadily. Surgery does not feel that that is indicated and GI signed off the case at this time. If she is doing well by tomorrow can discharge her Qualifiers: Hemorrhoid type: fourth degree Qualified Codes: K64.3 - Fourth degree hemorrhoids (2) Closed right ankle fracture Status: Acute Comment: On trying cover the mechanism of managing her pain control does not require opiates. Qualifiers: Encounter type: subsequent encounter Fracture healing: with routine healing Qualified Codes: S82.891D - Other fracture of right lower leg, subsequent encounter for closed fracture with routine healing (3) Acute hypokalemia Status: Acute Comment: Replace potassium (4) Anemia Comment: Rather significant anemia we will go ahead and do the basic workup Qualifiers: Anemia type: unspecified type Qualified Codes: D64.9 - Anemia, unspecified Result Diagram: 09/21/18 0451 09/21/18 0451 Results 24hrs Laboratory Tests Test 09/21/18 04:51 White Blood Count 5.5 Red Blood Count 2.54 L Hemoglobin 8.0 L Hematocrit 23.3 L Mean Corpuscular Volume 91.7 Mean Corpuscular Hemoglobin 31.5 Mean Corpuscular Hemoglobin Concent 34.3 Red Cell Distribution Width 15.0 H Platelet Count 452 H Mean Platelet Volume 10.2 Immature Granulocytes % 0.200 Neutrophils % 47.8 Lymphocytes % 40.0 Monocytes % 7.7 Eosinophils % 3.8 Basophils % 0.5 Nucleated Red Blood Cells % 0.0 Immature Granulocytes # 0.010 Neutrophils # 2.6 Lymphocytes # 2.2 Monocytes # 0.4 Eosinophils # 0.2 Basophils # 0.0 Nucleated Red Blood Cells # 0.0 Sodium Level 142 Potassium Level 3.2 L Chloride Level 106 Carbon Dioxide Level 26 Anion Gap 10 Blood Urea Nitrogen 7 Creatinine 0.71 Est Glomerular Filtrat Rate mL/min > 60 Glucose Level 89 Calcium Level 9.8 Subjective 24 Hr Interval Summary Free Text/Dictation Patient reports that her ankle pain is under control as long as she does not move around. The perirectal pain is slowly improving. Constitutional: no complaints Respiratory: no complaints Cardiovascular: no complaints Gastrointestinal: no complaints Exam/Review of Systems Exam Vitals Vital Signs Date Temp Pulse Resp B/P (MAP) Pulse Ox O2 O2 Flow FiO2 Time Delivery Rate 09/21/18 98.6 78 18 135/80 93 Room Air 14:19 (98) Intake and Output 09/20/18 09/20/18 09/21/18 1515:00 23:00 07:00 IntakeIntake Total 350 ml 350 ml BalanceBalance 350 ml 350 ml Exam Stoic and strong -[place] female lying in bed Constitutional: alert, oriented Neck: supple, non-tender Respiratory: clear to auscultation, normal air movement Cardiovascular: regular rate and rhythm, nl pulses Gastrointestinal: soft, nl liver, spleen, non-tender Results Results 24hrs Laboratory Tests Test 09/21/18 04:51 White Blood Count 5.5 Red Blood Count 2.54 L Hemoglobin 8.0 L Hematocrit 23.3 L Mean Corpuscular Volume 91.7 Mean Corpuscular Hemoglobin 31.5 Mean Corpuscular Hemoglobin Concent 34.3 Red Cell Distribution Width 15.0 H Platelet Count 452 H Mean Platelet Volume 10.2 Immature Granulocytes % 0.200 Neutrophils % 47.8 Lymphocytes % 40.0 Monocytes % 7.7 Eosinophils % 3.8 Basophils % 0.5 Nucleated Red Blood Cells % 0.0 Immature Granulocytes # 0.010 Neutrophils # 2.6 Lymphocytes # 2.2 Monocytes # 0.4 Eosinophils # 0.2 Basophils # 0.0 Nucleated Red Blood Cells # 0.0 Sodium Level 142 Potassium Level 3.2 L Chloride Level 106 Carbon Dioxide Level 26 Anion Gap 10 Blood Urea Nitrogen 7 Creatinine 0.71 Est Glomerular Filtrat Rate mL/min > 60 Glucose Level 89 Calcium Level 9.8 Medications Medication Current Medications Ondansetron HCl (Zofran Inj) 4 mg Q6H PRN IV NAUSEA/VOMITING; Start 09/18/18 at 11:30 Acetaminophen (Tylenol Tab) 650 mg Q6H PRN PO .PAIN 1-3 OR TEMP Last administered on 09/21/18at 12:13; Admin Dose 650 MG; Start 09/18/18 at 11:30 Hydromorphone HCl (Dilaudid) 0.5 mg Q4H PRN IV .SEVERE PAIN 7-10 Last administered on 09/21/18 13:23; Admin Dose 0.5 MG; Start 09/18/18 at 11:30 Zolpidem Tartrate (Ambien) 5 mg QHS PRN PO .INSOMNIA; Start 09/18/18 at 11:30 Famotidine (Pepcid) 20 mg Q12 PO Last administered on 09/21/18 09:53; Admin Dose 20 MG; Start 09/18/18 at 21:00 Polyethylene Glycol (Miralax) 17 gm DAILY PO Last administered on 09/21/18 09:53; Admin Dose 17 GM; Start 09/18/18 at 11:30 Hydrocortisone (Anusol-Hc Supp) 25 mg BID HI Last administered on 09/21/18 09:50; Admin Dose 25 MG; Start 09/18/18 at 21:00 Ibuprofen (Motrin) 600 mg Q6H PRN PO PAIN Last administered on 09/20/18 12:01; Admin Dose 600 MG; Start 09/20/18 at 12:00 Docusate Sodium (Colace Liquid Cup) 250 mg DAILY PO Last administered on 12:00; Admin Dose 250 MG; Start 09/20/18 at 11:33 Lidocaine (Lidocaine 5% Oint) 1 applic QID PRN TOP PAIN (to rectum) Last administered on 09/20/18 15:34; Admin Dose 1 APPLIC; Start 09/20/18 at 14:30 Skin Resp Fact/ Shark/Phenyl Mercur (Hemorrhoidal Supp) 1 ea Q8H HI Last administered on 09/21/18 09:51; Admin Dose 1 EA; Start 09/20/18 at 17:00 Zinc Oxide (Desitin) 1 applic Q2H PRN TOP pain, after each BM; Start 09/20/18 at 16:00 Tramadol HCl (Ultracet) 1 tab Q6H PRN PO MODERATE PAIN LEVEL 4-6; Start 09/20/18 at 16:00 Tramadol HCl (Ultracet) 2 tab Q6H PRN PO PAIN LEVEL 7-10 Last administered on 09/21/18 10:02; Admin Dose 2 TAB; Start 09/20/18 at 16:00 Heparin Sodium (Porcine) (Heparin (5000 Units/1ml)) 5,000 unit BID SC Last administered on 09/21/18at 09:52; Admin Dose 5,000 UNIT; Start 09/20/18 at 21:00 Magnesium Sulfate (Epsom Salt) 1 APPLICATION with s... DAILY PRN TOP PAIN; Start 09/21/18 at 13:30 SHABNAM FONSECA MD Sep 21, 2018 15:06
[2018-09-21] MEDS ORDERED: SOD FERRIC GLUC COMPLX 125 MG in SOD CHLORIDE 0.9% 100 ML IVPB ONE (16:30)
[2018-09-21] MEDS: IBUPROFEN 600 MG TAB PO SCH (17:19)
[2018-09-21 20:00] VITALS: BP 153/89; PULSE 69; RESP 17
[2018-09-21 20:01] VITALS: BP 150/92; PULSE 69
[2018-09-22] MEDS: SKIN RESP FACT/SHARK/PH MERCU SUPP PR SCH ×2 (01:24→09:16)
[2018-09-22 02:00] VITALS: BP 159/77; PULSE 78; RESP 17
[2018-09-22] MEDS: HYDROmorphONE 0.5 MG/0.5 ML SYG IV PRN ×2 (05:49→10:08)
[2018-09-22 08:22] VITALS: BP 141/95; PULSE 77; RESP 16
[2018-09-22] MEDS: IBUPROFEN 600 MG TAB PO SCH ×2 (09:15→12:26)
[2018-09-22] MEDS: POLYETHYLENE GLYCOL 17 GM PACKET PO SCH (09:15)
[2018-09-22] MEDS: HYDROCORTISONE 25 MG SUPP PR SCH (09:16)
[2018-09-22] MEDS: FAMOTIDINE 20 MG TAB PO SCH (09:16)
[2018-09-22] MEDS: DOCUSATE SODIUM 10 MG/ML (10ML CUP) PO SCH (09:16)
[2018-09-22] MEDS: HEPARIN 5,000 UNIT/1 ML VIAL SC SCH (09:21)
--- NOTE | 2018-09-22 10:35 | DS ---
Date/Time of Note Date/Time of Note DATE: 09/22/18 TIME: 10:30 Discharge Summary Admission/Discharge Info Admit Date/Time Sep 18, 2018 at 09:27 Discharge Date/Time September 22, 2018 Discharge Diagnosis 4+ external hemorrhoids with severe pain; iron deficiency anemia; closed right ankle fracture; hypokalemia; essential hypertension Patient Condition: Good Consults Gastroenterology; general surgery Hx of Present Illness Hx of Present Illness Pleasant 57-year-old female with a past medical history of high blood pressure, chronic hemorrhoids since her 30s, and jitteriness, who due to her natural twitching sustained a fall and ended up with an ankle fracture a few weeks ago. She has a large splint/cast on her right lower extremity and was put on opioid pain medicine for comfort due to the fracture. Unfortunately she developed severe constipation from that. Last night while she was in the bathroom trying to have a bowel movement, she states that her stool felt like a rock, and she was straining a lot and suddenly she felt a pop that was associated with severe pain and she also started noticing some bleeding in the bathroom. She called the nurse associated with her insurance company who suggested that she go to the emergency room. At the emergency room she was found to have protrusion from her rectum concerning for rectal prolapse and due to insurance reasons, she was referred to us for continued management and supportive care. At this time she is just complaining of severe rectal pain. She denies fever, denies vomiting, denies abdominal pain, denies chest pain or passing out episodes. She denies headaches or visual changes. Hx of Present Illness 57-year-old female past medical history of hypertension and questionable hepatitis C who presented to the hospital with complaints of rectal pain. Patient states she recently fractured her ankle and was taking narcotic medication which subsequently caused constipation after attempting to go the bathroom with large amounts of pushing patient heard a pop and noted acute rectal pain she presented to [facility] but there she was diagnosed with rectal prolapse she was evaluated and manual rectal prolapse reduction was attempted at bedside however this was unsuccessful patient was deemed stable and transferred to [facility] for further evaluation. At time evaluation patient is resting in bed with rectal prolapse is noted on examination patient. Pain is currently being covered with pain medication she denies nausea/vomiting or abdominal pain. Patient has never had a colonoscopy was scheduled to see a casting associate sometime this week. Additionally with notes from [facility] it appears patient has a history of hepatitis C unclear if it has been treated in the past. Patient is also unclear if she indeed does have hepatitis. At this time will recommend surgical consult for possible reduction of rectal prolapse we will additionally check hepatitis panel. Further recognitions based on clinical course. Review of Systems: A 12 system, review was conducted and is negative except as noted in the HPI or here. Hx of Present Illness Jean Carlos Bean is a 57-year-old woman with past medical history of high blood pressure, chronic hemorrhoids, recent right ankle fracture and jitteriness who sustained a fracture from a recent fall a few weeks ago. Due to her recent fracture, she has been taking opioid medication and has recently developed constipation. Last night while trying to have a bowel movement, she reports straining and felt a pop associated with severe pain and some bleeding noted in the toilet. She presented to outside hospital was found to have a protrusion from her rectum. She continues to have + bowel function. She denies fevers, chills, abdominal pain, shortness of breath, current rectal bleeding. General surgery was asked to evaluate. 12 point review of systems was performed and is negative except for as stated in HPI. Hospital Course 7-year-old [facility] female who came in with pain as noted in the history of present illness. She was treated conservatively and did very well. Workup of her anemia did demonstrate a modest iron deficiency but her anemia is in excess of the amount of iron. This will need to be further evaluated as an outpatient. Her ankle fracture on the right-hand side has done well. She did have hypokalemia which was corrected. These note we did not pursue an evaluation for secondary causes of hypertension with hypokalemia second easily be as an outpatient and would have unnecessarily prolonged hospitalization. Follow-up Plan With primary care physician for long-term management of hemorrhoids, formal evaluation of anemia, and evaluation of hypokalemia with hypertension. Primary Care Provider Not On Staff Doctor Time spent on discharge: > 30 minutes Pending Labs Laboratory Tests Test 09/21/18 15:34 Iron Level 49 ug/dl (35-150) Total Iron Binding Capacity 357 ug/dl (241-421) Percent Iron Saturation 14 % SAT (22-52) SHABNAM FONSECA MD Sep 22, 2018 10:35
--- NOTE | 2018-09-22 10:35 | PDOCDIS ---
Discharge Instructions DIAGNOSIS Discharge Diagnosis 4+ external hemorrhoids with severe pain; iron deficiency anemia; closed right ankle fracture; hypokalemia; essential hypertension CONDITION [id number] Patient Condition: [id number] Good HOME CARE INSTRUCTIONS: [id number] Diet Instructions: [id number] Regular ACTIVITY: [id number] Activity Restrictions: [id number] No Restrictions FOLLOW UP/APPOINTMENTS Follow-up Plan With primary care physician for long-term management of hemorrhoids, formal evaluation of anemia, and evaluation of hypokalemia with hypertension. SHABNAM FONSECA MD Sep 22, 2018 10:35
[2018-09-22] MEDS ORDERED: POLY17PO6 PO (10:36)
[2018-09-22] MEDS ORDERED: Hydrocortisone Supp PR (10:36)
[2018-09-22] MEDS ORDERED: SOD FERRIC GLUC COMPLX 125 MG in SOD CHLORIDE 0.9% 100 ML IVPB ONE (12:00)
== END 2018-09-22 14:29 | disposition home or self-care (01) | DRG 395 ==
LOC: PP2 09:27
PROVIDERS: ADMIT Internal Medicine; ATTEND Family Medicine
DX: K64.4 Residual hemorrhoidal skin tags (principal); I10 Essential (primary) hypertension; K62.2 Anal prolapse; D50.9 Iron deficiency anemia, unspecified; E87.6 Hypokalemia; K59.03 Drug induced constipation; T40.2X5A Adverse effect of other opioids, initial encounter; S82.891D Other fracture of right lower leg, subsequent encounter for closed fracture with routine healing; W19.XXXD Unspecified fall, subsequent encounter
CPT/HCPCS: 80048; 80053; 82607; 83540; 83735; 84100; 85025; 85610; 85730; 86706; 86803; 87081; 87340; 87522; J1170; J1200; J1644; J2916; J7042

== ENCOUNTER 2018-10-08 17:24 | Inpatient (IN) | payer OTHER ==
[~2018-10-08] VITALS: Ht 170.2 cm; Wt 73.5 kg
[~2018-10-08 17:24] MED LIST: Hydrocortisone Supp PR; POLY17PO6 PO
[2018-10-08] MEDS ORDERED: D5W-0.45 NACL + KCL 20 MEQ 1,000 ML IV STA (17:53)
--- NOTE | 2018-10-08 17:58 | ERD ---
ER Documentation Chief Complaint Chief Complaint sent by PCP for R. ankle surgery HPI 57-year-old female sent by Dr. Barros, orthopedist, for urgent admission for postop clearance. Patient has a right ankle fracture dislocation that needs urgent surgery, but needs postoperative clearance prior to surgery. She already ate today so surgery is planned for either later tonight or early in the morning. Patient states that her injury happened on September 07. She went to the hospital where she was referred to an orthopedist, however due to insurance reasons, did not have follow-up until today. When she went to the doctor today, she was told that she needed surgery urgently. She is complaining of 10 out of 10 right ankle pain for which she has only been taking ibuprofen. She denies any numbness or tingling in her leg. She is not weightbearing at all since the injury. She is using a wheelchair ROS All systems reviewed and are negative except as per history of present illness. Medications Home Meds Active Scripts [Hydrocortisone Supp] 25 MG SUPP No Conflict Check, 25 MG MA BID for 14 Days, #30 Prov:SHABNAM FONSECA MD 09/22/18 Polyethylene Glycol* (Miralax*) 17 Gm Powd.pack, 17 GM PO DAILY for 30 Days, #30 BOX Prov:SHABNAM FONSECA MD 09/22/18 Allergies Allergies: Coded Allergies: morphine (Verified Allergy, Mild, 09/18/18) ITCHING PMhx/Soc History of Surgery: No Hx Neurological Disorder: No Hx Respiratory Disorders: No Hx Cardiac Disorders: Yes (HTN) Hx Psychiatric Problems: No Hx Miscellaneous Medical Probl: No Hx Alcohol Use: Yes (OCCASIONALLY (WINE)) Hx Substance Use: No Hx Tobacco Use: No FmHx Family History: No diabetes Physical Exam Vitals Vital Signs Date Temp Pulse Resp B/P (MAP) Pulse Ox O2 O2 Flow FiO2 Time Delivery Rate 10/08/18 97.4 104 23 136/82 100 Room Air 20:18 (100) 10/08/18 97.4 97 18 129/82 99 Room Air 18:47 (98) 10/08/18 97.4 107 18 134/88 99 17:29 (103) Physical Exam Const: nontoxic. Somewhat tearful secondary to pain. Head: Atraumatic Eyes: Normal Conjunctiva ENT: Normal External Ears, Nose and Mouth. Neck: Full range of motion. No meningismus. Resp: Clear to auscultation bilaterally Cardio: Regular rate and rhythm, no murmurs Abd: Soft, non tender, non distended. Normal bowel sounds Skin: No petechiae or rashes Back: No midline or flank tenderness Ext: No cyanosis, or edema. Right lower extremity with cast in place. Toes are well perfused, cap refill less than 2 seconds. Sensations intact in all exposed areas of the leg including the knee and above the knee as well as in the toes. Full range of motion at the hip, knee of right lower extremity. Ankle immobilized. Left lower extremity normal to inspection and palpation. Neur: Awake and alert. Sensations grossly intact. Motor strength grossly intact, but exam limited at the ankle secondary to cast. Psych: Normal Mood and Affect Result Diagram: 10/08/18181310/08/181813 Results 24 hrs Laboratory Tests Test 10/08/18 18:14 White Blood Count 5.0 10^3/ul Red Blood Count 3.85 10^6/ul Hemoglobin 11.3 g/dl Hematocrit 34.0 % Mean Corpuscular Volume 88.3 fl Mean Corpuscular Hemoglobin 29.4 pg Mean Corpuscular Hemoglobin Concent 33.2 g/dl Red Cell Distribution Width 14.8 % Platelet Count 343 10^3/UL Mean Platelet Volume 10.9 fl Immature Granulocytes % 0.200 % Neutrophils % % Lymphocytes % % Monocytes % % Eosinophils % % Basophils % % Nucleated Red Blood Cells % 0.0 /100WBC Immature Granulocytes # 0.010 10^3/ul Neutrophils # 10^3/ul Lymphocytes # 10^3/ul Monocytes # 10^3/ul Eosinophils # 10^3/ul Basophils # 10^3/ul Nucleated Red Blood Cells # 10^3/ul Prothrombin Time 12.7 Sec Prothrombin Time Ratio 1.0 INR International Normalized Ratio 0.94 Activated Partial Thromboplast Time 29.1 Sec Sodium Level 142 mmol/L Potassium Level 3.2 mmol/L Chloride Level 103 mmol/L Carbon Dioxide Level 27 mmol/L Anion Gap 12 Blood Urea Nitrogen 20 mg/dl Creatinine 0.88 mg/dl Est Glomerular Filtrat Rate mL/min > 60 mL/min Glucose Level 130 mg/dl Calcium Level 10.6 mg/dl Total Bilirubin 0.6 mg/dl Direct Bilirubin 0.00 mg/dl Indirect Bilirubin 0.6 mg/dl Aspartate Amino Transf (AST/SGOT) 29 IU/L Alanine Aminotransferase (ALT/SGPT) 15 IU/L Alkaline Phosphatase 110 IU/L Total Protein 9.0 g/dl Albumin 4.8 g/dl Globulin 4.20 g/dl Albumin/Globulin Ratio 1.14 Current Medications Medications Dose Sig/Ryan Start Time Status Last (Trade) Ordered Route PRN Stop Time Admin Dose Reason Admin Potassium 1,000 ml @ Q8H STAT 10/08/18 10/08/18 Chloride/Dext 125 mls/hr IV 17:53 18:44 jenifer/ Sod Cl 10/09/18 01:52 Cefazolin 50 ml @ PRE-OP ONCE 10/08/18 DC 10/08/18 Sodium/ 100 mls/hr IVPB 18:30 18:43 Dextrose 10/08/18 18:59 0.5 mg ONCE STAT 10/08/18 DC 10/08/18 Hydromorphone IV 18:49 18:56 HCl 10/08/18 18:50 (Dilaudid) Ondansetron 4 mg BRIDGE ORDER 10/08/18 HCl (Zofran PRN IV 19:30 Inj) NAUSEA/VOMITI 10/09/18 19:29 NG 650 mg ER BRIDGE 10/08/18 10/08/18 Acetaminophen PRN PO 19:30 20:16 (Tylenol .MILD PAIN 10/09/18 19:29 Tab) 1-3 OR TEMP IV Flush 3 ml PER 10/08/18 (NS 3 ml) PROTOCOL IV 20:00 Ondansetron 4 mg Q6H PRN 10/08/18 HCl (Zofran PO 20:00 Tab) NAUSEA/VOMITI NG 650 mg Q6H PRN 10/08/18 Acetaminophen PO .PAIN 1-3 20:00 (Tylenol OR TEMP Tab) 1 tab Q6H PRN 10/08/18 Acetaminophen PO .MOD PAIN 20:00 / 4-6 Hydrocodone Bitart ([place] (5/325)) Morphine 2 mg Q4H PRN 10/08/18 UNV Sulfate IV .SEVERE 20:00 (morphine) PAIN 7-10 Docusate 100 mg Q12H PRN 10/08/18 Sodium PO 20:00 (Colace) .CONSTIPATION Bisacodyl 5 mg DAILY PRN 10/08/18 (Dulcolax) PO 20:00 .CONSTIPATION Sodium 1,000 ml @ [id number] IV 10/09/18 Chloride 75 mls/hr 09:00 0.5 mg Q4H PRN 10/08/18 Hydromorphone IV SEVERE 20:00 HCl PAIN LEVEL (Dilaudid) 7-10 Potassium 40 meq ONCE STAT 10/08/18 DC 10/08/18 Chloride PO 19:56 20:16 (Klor-Con 20) 10/08/18 19:58 Procedures/MDM EMERGENT LABS AND DIAGNOSTIC STUDIES: Lab Results above were reviewed and interpreted by me. CBC: Mild anemia. No evidence of infection, thrombocytopenia, or thrombocytosis CMP: No evidence of clinically significant electrolyte abnormality, acidosis, renal failure, hypoglycemia, liver disease, or biliary obstruction Coags unremarkable, no evidence of coagulopathy 12-lead EKG was interpreted by Kirill Pompa MD: Normal Sinus Rhythm Normal axis Normal intervals No acute ST or T wave changes suggestive of acute ischemia or STEMI. Radiology Results as interpreted by Radiology below were reviewed by SRoberto Pompa MD: Chest x-ray shows no acute abnormalities Initial Nursing notes reviewed. Previous Medical Records requested via the Electronic Health Record. EMERGENCY DEPARTMENT COURSE / MEDICAL DECISION MAKING: Patient is presenting with a closed right ankle fracture with dislocation. She is grossly neurovascularly intact. Labs did not show any significant abnormalities. Preop workup has been initiated. She will be admitted for further clearance and for OR as planned. Patient was treated for her pain with improvement. Accepting Care Team: Current data and ongoing care discussed. Time: Time of admission Primary Provider: Dr. Mortensen Consulting: Dr. Barros Outstanding Data: none Departure Diagnosis: Primary Impression: Closed right ankle fracture Encounter type: initial encounter Qualified Codes: S82.891A - Other fracture of right lower leg, initial encounter for closed fracture Condition: ALO Mejia MD Oct 08, 2018 17:58
--- NOTE | 2018-10-08 18:19 | CONS ---
Assessment/Plan Assessment/Plan Assessment/Plan (Daily) Plan for Right ankle placement of external fixator, ORIF of fibula, possible ORIF of distal tibial pilon and syndesmosis tomorrow evening after clearance by Primary medical team NPO after Breakfast tomorrow NWB to the CHERYL Chan MD Consultation Date/Type/Reason Admit Date/Time Date of Consultation: Oct 08, 2018 Type of Consult Orthopedic Surgery Reason for Consultation Right ankle fracture dislocation Date/Time of Note DATE: 10/08/18 TIME: 18:19 Hx of Present Illness HISTORY OF PRESENT ILLNESS: Jean Carlos is adelightful, 57-year-old femalewho sustained a right ankle fracture dislocation on September 03, 2018. Initially, she was told it was an ankle sprain by her primary care doctor and then went to the emergency room given the amount of pain she was having. Initially, she went to the emergency room at [facility] on September 07, 2018. The ankle was not reduced at the time of the emergency room visit, and was put into a posterior mold splint with no reduction and sent for followup. She was told to follow up with her primary care doctor who then referred her to me, now approximately 4 weeks status post her ankle fracture dislocation. Pain is 10/10 in severity today. PAST MEDICAL HISTORY:Hypertension and anxiety. MEDICATIONS:None. ALLERGIES:NONE. PAST SURGICAL HISTORY:None. SOCIAL HISTORY:She is single, never smokes, occasionally drinks. REVIEW OF SYSTEMS: The 14-point review of systems as documented today in the medical record is remarkable for the positive orthopedic problems discussed above and their relevance was considered with respect to constitutional, ENT, cardiovascular, , skin, neurologic, endocrine, hematologic, psychiatric, gastrointestinal, respiratory, eyes, and allergic/immunologic systems except as noted on the intake form. PHYSICAL EXAMINATION GENERAL:Jean Carlos is5 feet7 inches. CONSTITUTIONAL: The patient is a 57-year-old female in no acute distress. PSYCHIATRIC:She is alert and oriented x3 with a normal mood and affect. ENT: Hearing is intact. EYES: EOM intact. PULMONARY: Respirations appear unlabored. NEUROLOGIC: Skin sensation is intact distally to the medial, lateral, dorsal, plantar, and first dorsal web-space distribution. VASCULAR: Pulses are intact distally. MUSCULOSKELETAL:[facility], she has a mal reduced ankle fracture dislocation with pain over the medial malleolus and lateral malleolus. Ankle range of motion and strength were not tested due to pain. X-RAYS:Three views of the right ankleevaluated today reveal evidence of significantly displaced ankle fracture dislocation with the medial malleolus to the plafond and fibula displacedwith early callus noted that is shortened and rotated and mal reduced. ASSESSMENT: Right ankle fracture dislocation, tibial plafond, pilon fracture and fibula, now one month out. RECOMMENDATIONS: The recommendation at this time is for an urgent admission to [facility] for external fixator placement as well as possible ORIF of the fibula and tibial plafond given her significant fracture dislocation. This is a significant concern for her ability to ambulate in the future given that significantly at the time the patient has beenmal reduced and possible wound compromise. The patient will be admitted from the emergency room today. Past Medical History Home Meds Active Scripts [Hydrocortisone Supp] 25 MG SUPP No Conflict Check, 25 MG VT BID for 14 Days, #30 Prov:SHABNAM FONSECA MD 09/22/18 Polyethylene Glycol* (Miralax*) 17 Gm Powd.pack, 17 GM PO DAILY for 30 Days, #30 BOX Prov:SHABNAM FONSECA MD 09/22/18 Reported Medications Calcium Carbonate/Vitamin D3 ([place] 500+D Tablet) 1 Each Tablet, 1 EACH PO DAILY, TAB 10/08/18 Multivitamins* (Theragran*) 1 Tab Tab, 1 TAB PO DAILY, TAB 10/08/18 Propranolol Hcl* (Propranolol Hcl*) 40 Mg Tablet, 40 MG PO BID for 30 Days, #120 TAKE 1 TABLET BY ORAL ROUTE 2 TIMES EVERY DAY X 1 WK THEN 2 TABLETS BY MOUTH TWICE A DAY 10/08/18 Losartan Potassium* (Losartan Potassium*) 100 Mg Tablet, 100 MG PO DAILY for 30 Days 10/08/18 Polyethylene Glycol 3350 ([id number]) 238 Gm Powder, 17 GM PO DAILY for 30 Days TAKE (17G) BY ORAL ROUTE EVERY DAY MIXED WITH 8 OZ. WATER, JUICE, SODA, COFFEE OR TEA 10/08/18 Docusate Sodium* (Docusate Sodium*) 100 Mg Capsule, 100 MG PO BID for 30 Days, #60 TAKE 1 CAPSULE BY ORAL ROUTE TWICE A DAY NEEDED 10/08/18 Ibuprofen* (Ibuprofen*) 600 Mg Tablet, 600 MG PO Q6H PRN for PAIN LEVEL 1-5, TAB 10/08/18 Duloxetine Hcl* (Duloxetine Hcl*) 60 Mg Capsule.dr, 60 MG PO DAILY for 30 Days 10/08/18 Medications Current Medications Potassium Chloride/Dextrose/ Sod Cl 1,000 ml @ 125 mls/hr Q8H STAT IV ; Start 10/08/18 at 17:53; Stop 10/09/18 at 01:52 Cefazolin Sodium/ Dextrose 50 ml @ 100 mls/hr PRE-OP ONCE IVPB ; Start 10/08/18 at 18:30; Stop 10/08/18 at 18:59 Allergies: Coded Allergies: morphine (Unverified Allergy, Mild, 10/08/18) ITCHING Past Surgical History Past Surgical Hx: no surgical history Exam/Review of Systems Exam Vitals Vital Signs Date Temp Pulse Resp B/P (MAP) Pulse Ox O2 O2 Flow FiO2 Time Delivery Rate 10/08/18 97.4 107 18 134/88 99 17:29 (103) Medications Medication Current Medications Potassium Chloride/Dextrose/ Sod Cl 1,000 ml @ 125 mls/hr Q8H STAT IV ; Start 10/08/18 at 17:53; Stop 10/09/18 at 01:52 Cefazolin Sodium/ Dextrose 50 ml @ 100 mls/hr PRE-OP ONCE IVPB ; Start 10/08/18 at 18:30; Stop 10/08/18 at 18:59 KENYETTA CHAN MD Oct 08, 2018 18:19
[2018-10-08] MEDS ORDERED: CEFAZOLIN 2 GM/50 ML (PMX) 50 ML IVPB ONE (18:30)
[2018-10-08] MEDS ORDERED: HYDROmorphONE 0.5 MG/0.5 ML SYG IV STA (18:49)
[2018-10-08] MEDS ORDERED: ACETAMINOPHEN 325 MG TAB PO PRN ×2 (19:30→20:00)
[2018-10-08] MEDS ORDERED: ONDANSETRON 4 MG INJ IV PRN (19:30)
--- NOTE | 2018-10-08 19:53 | HP ---
Date/Time of Note Date/Time of Note DATE: 10/08/18 TIME: 19:52 Assessment/Plan VTE Prophylaxis SCD applied (from Nsg): Yes (Left lower extremity) Pharmacological prophylaxis: NA/contraindicated Pharm contraindication: low risk/ambulating Lines/Catheters IV Catheter Type (from Nrsg): Saline Lock Assessment/Plan Hospital Course This is a 57-year-old female being admitted to the [facility] for: #1 right ankle fracture: Patient is to have right ankle surgery tomorrow for placement of external fixator, ORIF of fibula, possible ORIF of distal tibial pilon and syndesmosis to be performed by . Patient's EKG is nonischemic. Her chest x-ray is within normal values. Patient is medically optimized to proceed with surgery tomorrow. She will be made n.p.o. except meds after breakfast. Patient will be nonweightbearing of the right lower extremity. ++Patient is an active female. Prior to her ankle fracture she was able to go up and down stairs without any difficulty and without any chest pain or shortness of breath. She is an independent functioning female. METS >4. Benefits of surgery outweigh the risks and patient is medically optimized to proceed with surgical intervention. #2 hypokalemia: We will replete #3 normocytic anemia: We will check iron stores, no signs of bleeding. #4 DVT GI prophylaxis: SCDs of the left lower extremity. No GI prophylaxis Further treatment strategy will be implemented as per the clinical course Result Diagram: 10/08/18 1814 10/08/18 1814 Results 24hrs Laboratory Tests Test 10/08/18 18:14 White Blood Count 5.0 Red Blood Count 3.85 #L Hemoglobin 11.3 #L Hematocrit 34.0 #L Mean Corpuscular Volume 88.3 Mean Corpuscular Hemoglobin 29.4 Mean Corpuscular Hemoglobin Concent 33.2 Red Cell Distribution Width 14.8 H Platelet Count 343 # Mean Platelet Volume 10.9 H Immature Granulocytes % 0.200 Neutrophils % Lymphocytes % Monocytes % Eosinophils % Basophils % Nucleated Red Blood Cells % 0.0 Immature Granulocytes # 0.010 Neutrophils # Lymphocytes # Monocytes # Eosinophils # Basophils # Nucleated Red Blood Cells # Prothrombin Time 12.7 Prothrombin Time Ratio 1.0 INR International Normalized Ratio 0.94 Activated Partial Thromboplast Time 29.1 Sodium Level 142 Potassium Level 3.2 L Chloride Level 103 Carbon Dioxide Level 27 Anion Gap 12 Blood Urea Nitrogen 20 Creatinine 0.88 Est Glomerular Filtrat Rate mL/min > 60 Glucose Level 130 Calcium Level 10.6 H Total Bilirubin 0.6 Direct Bilirubin 0.00 Indirect Bilirubin 0.6 Aspartate Amino Transf (AST/SGOT) 29 Alanine Aminotransferase (ALT/SGPT) 15 Alkaline Phosphatase 110 Total Protein 9.0 H Albumin 4.8 Globulin 4.20 H Albumin/Globulin Ratio 1.14 HPI/ROS Admit Date/Time Admit Date/Time Hx of Present Illness Chief complaint: Right ankle fracture, sent in by orthopedist This is a 57-year-old female sent by Dr. Barros, orthopedist, for admission right ankle surgery. Patient has a right ankle fracture dislocation that requires operative intervention and preop clearance. Surgery is tentatively planned for tomorrow. Patient states that her injury happened on September 07. She went to the hospital where she was referred to an orthopedist, however due to insurance reasons, did not have follow-up until today. When she went to the doctor today, she was told that she needed surgery urgently. She is complaining of 10 out of 10 right ankle pain for which she has only been taking ibuprofen. She denies any numbness or tingling in her leg. She is not weightbearing at all since the injury. She is using a wheelchair. Patient reports that prior to the surgery she did not have any issues ambulating. She is an active female. She was able to walk up and down stairs without any difficulty and without any shortness of breath or chest pain. No prior surgeries. Allergies: Morphine Medications: See MAR ROS Const: As per HPI Eyes : No pain discharge or redness or change in visual acuity ENT: No pain, sore throat, congestion, congestion, dysphagia or discharge Respiratory: No shortness of breath, cough, sputum, wheezing, or pleuritic pain Cardiovascular: No chest pain, palpitation, PND, or edema GI : no change in appetite, abdominal pain, nausea, vomiting, diarrhea, constipation, or change in the color his stool Genitourinary: No dysuria, hematuria, flank pain , discharge or CVA tenderness Musculoskeletal: As per HPI Skin: No rash, bruising or hives Neuro: No headache, dizziness, syncope, seizure, focal weakness Endocrine: No polyuria, polydipsia, temperature intolerance Psych: No hallucination, depression, anxiety or suicidal ideation PMH/Family/Social Past Medical History Hypertension, mood disorder Medications Current Medications Potassium Chloride/Dextrose/ Sod Cl 1,000 ml @ 125 mls/hr Q8H STAT IV Last administered on 10/08/18at 18:44; Admin Dose 125 MLS/HR; Start 10/08/18 at 17:53; Stop 10/09/18 at 01:52 Ondansetron HCl (Zofran Inj) 4 mg BRIDGE ORDER PRN IV NAUSEA/VOMITING; Start 10/08/18 at 19:30; Stop 10/09/18 at 19:29 Acetaminophen (Tylenol Tab) 650 mg ER BRIDGE PRN PO .MILD PAIN 1-3 OR TEMP; Start 10/08/18 at 19:30; Stop 10/09/18 at 19:29 IV Flush (NS 3 ml) 3 ml PER PROTOCOL IV ; Start 10/08/18 at 20:00 Ondansetron HCl (Zofran Tab) 4 mg Q6H PRN PO NAUSEA/VOMITING; Start 10/08/18 at 20:00 Acetaminophen (Tylenol Tab) 650 mg Q6H PRN PO .PAIN 1-3 OR TEMP; Start 10/08/18 at 20:00 Acetaminophen/ Hydrocodone Bitart ([place] (5/325)) 1 tab Q6H PRN PO .MOD PAIN 4- 6; Start 10/08/18 at 20:00; Status UNV Morphine Sulfate (morphine) 2 mg Q4H PRN IV .SEVERE PAIN 7-10; Start 10/08/18 at 20:00; Status UNV Docusate Sodium (Colace) 100 mg Q12H PRN PO .CONSTIPATION; Start 10/08/18 at 20 :00 Bisacodyl (Dulcolax) 5 mg DAILY PRN PO .CONSTIPATION; Start 10/08/18 at 20:00 Coded Allergies: morphine (Unverified Allergy, Mild, 10/08/18) ITCHING Past Surgical History Past Surgical Hx: no surgical history Family History Significant Family History: no pertinent family hx Social History Alcohol Use: none Smoking Status: Never smoker Drug Use: none Exam/Review of Systems Vital Signs Vitals Vital Signs Date Temp Pulse Resp B/P (MAP) Pulse Ox O2 O2 Flow FiO2 Time Delivery Rate 10/08/18 97.4 97 18 129/82 99 Room Air 18:47 (98) Exam Exam General: Patient is a pleasant female currently lying in bed in no acute distress HEENT: Atraumatic, normocephalic. The pupils are equal, round and reactive. Extraocular motor are intact Neck: Supple with full range of motion. No rigidity or meningismus Chest: Nontender Lungs: Clear to auscultation bilaterally no crackles rales or wheezing Heart: Normal S1-S2, Regular rhythm and rate. No murmur, S3, or S4 Abdomen: Soft , nontender, nondistended , bowel sounds are present. No guarding no rebound tenderness , No masses or organomegaly. No costovertebral temporal angle mass Extremities: Right lower extremity: Has a cast, patient is able to wiggle her toes, distal pulses intact. Skin warm to touch, no cyanosis noted. Neurologic: Normal mental status, speech normal, cranial nerves II through XII are intact, motor and sensory are intact, gait not assessed secondary to nonweightbearing of the right lower Additional Comments PROCEDURE: Chest x-ray CLINICAL INDICATION: Abdominal pain TECHNIQUE: Chest single view COMPARISON: None FINDINGS: The heart is normal in size. The pulmonary vessels are normal in caliber. The lungs are clear. The costophrenic angles are sharp. The visualized bony thorax is unremarkable. IMPRESSION: No acute cardiopulmonary disease. RPTAT: HH .Michel Wasserman MD, Date Time Electronically viewed and signed by .Michel Wasserman MD, on 10/08/2018 18:59 .W/ CC: ALO MAR MD [id number] EKG: Normal sinus rhythm at approximately 93 bpm, no ST or T wave abnormalities concerning for acute ischemia ASIF RODRIGUEZ Oct 08, 2018 19:53
[2018-10-08] MEDS ORDERED: POTASSIUM CHLORIDE (SR) 20 MEQ TAB PO STA (19:56)
[2018-10-08] MEDS ORDERED: ONDANSETRON 4 MG TAB PO PRN (20:00)
[2018-10-08] MEDS ORDERED: morphine 2 MG INJ IV PRN (20:00)
[2018-10-08] MEDS ORDERED: NACL 0.9% 3 ML SYG IV SCH (20:00)
[2018-10-08] MEDS ORDERED: HYDROCODONE/APAP (5/325) TAB PO PRN (20:00)
[2018-10-08] MEDS ORDERED: DOCUSATE SODIUM 100 MG CAP PO PRN (20:00)
[2018-10-08] MEDS ORDERED: BISACODYL (EC) 5 MG TAB PO PRN (20:00)
[2018-10-08] MEDS ORDERED: POLY238P32 PO (21:59)
[2018-10-08] MEDS ORDERED: DULO60CA59 PO (21:59)
[2018-10-08] MEDS ORDERED: MULTI PO (21:59)
[2018-10-08] MEDS ORDERED: LOSA100T15 PO (21:59)
[2018-10-08] MEDS ORDERED: DOCU-159 PO (21:59)
[2018-10-08] MEDS ORDERED: IBUP-1542 PO (21:59)
[2018-10-08] MEDS ORDERED: CALC1TAB79 PO (21:59)
[2018-10-08] MEDS ORDERED: PROP40TA4 PO (21:59)
[2018-10-08 22:15] VITALS: BP 166/91; PULSE 83; RESP 16
[2018-10-08 22:28] VITALS: Ht 170.2 cm; Wt 73.5 kg
[2018-10-09] MEDS ORDERED: traZODone 50 MG TAB PO ONE (01:30)
[2018-10-09 02:27] VITALS: BP 135/96; PULSE 76; RESP 16
[2018-10-09] MEDS ORDERED: SUCCINYLCHOLINE CHLORIDE 100 MG/5 ML SYG IV ONE (07:00)
[2018-10-09] MEDS ORDERED: EPHEDrine 25 MG/5 ML SYG ONE (07:00)
[2018-10-09 07:51] VITALS: BP 110/77; PULSE 78; RESP 18
[2018-10-09] MEDS: DOCUSATE SODIUM 100 MG CAP PO SCH ×2 (09:10→21:00)
[2018-10-09] MEDS: DULOXETINE 30 MG CAP DR PO SCH (09:11)
[2018-10-09] MEDS: LOSARTAN 50 MG TAB PO SCH (09:12)
[2018-10-09] MEDS: SOD CHLORIDE 0.9% 1,000 ML IV SCH (09:12)
--- NOTE | 2018-10-09 15:44 | PN ---
Date/Time of Note Date/Time of Note DATE: 10/09/18 TIME: 15:44 Assessment/Plan VTE Prophylaxis Risk score (from Ns)>0 risk: 8 SCD applied (from Ns): Yes Pharmacological prophylaxis: heparin Lines/Catheters IV Catheter Type (from Nrsg): Peripheral IV Urinary Cath still in place: Yes Reason Cath still needed: urinary retention Assessment/Plan Hospital Course 57 yo female wt ankle fracture - Operative management per Dr Barros - DVT ppx - Pain control Result Diagram: 10/09/18 0428 10/09/18 0428 Results 24hrs Laboratory Tests Test 10/08/18 18:14 10/09/18 04:28 White Blood Count 5.0 5.0 Red Blood Count 3.85 #L 3.30 L Hemoglobin 11.3 #L 9.6 L Hematocrit 34.0 #L 29.2 L Mean Corpuscular Volume 88.3 88.5 Mean Corpuscular Hemoglobin 29.4 29.1 Mean Corpuscular Hemoglobin Concent 33.2 32.9 Red Cell Distribution Width 14.8 H 14.8 H Platelet Count 343 # 316 Mean Platelet Volume 10.9 H 11.0 H Immature Granulocytes % 0.200 0.200 Neutrophils % 33.3 L Segmented Neutrophils % (Manual) 41 Lymphocytes % 56.2 H Lymphocytes % (Manual) 53 H Reactive Lymphocytes % (Manual) 2 H Monocytes % 6.5 Monocytes % (Manual) 3 Eosinophils % 3.4 Basophils % 0.4 Basophils % (Manual) 1 Nucleated Red Blood Cells % 0.0 0.0 Immature Granulocytes # 0.010 0.010 Neutrophils # 1.7 Lymphocytes (Manual) 2.6 Lymphocytes # 2.8 Reactive Lymphocytes # 0.1 H Monocytes # 0.3 Monocytes # (Manual) 0.1 L Eosinophils # 0.2 Basophils # 0.0 Basophils # (Manual) 0.0 Nucleated Red Blood Cells # 0.0 Platelet Estimate NORMAL Giant Platelets 1 H Prothrombin Time 12.7 Prothrombin Time Ratio 1.0 INR International Normalized Ratio 0.94 Activated Partial Thromboplast Time 29.1 Sodium Level 142 142 Potassium Level 3.2 L 3.9 Chloride Level 103 106 Carbon Dioxide Level 27 24 Anion Gap 12 12 Blood Urea Nitrogen 20 18 Creatinine 0.88 0.78 Est Glomerular Filtrat Rate mL/min > 60 > 60 Glucose Level 130 89 # Calcium Level 10.6 H 9.6 Total Bilirubin 0.6 0.3 Direct Bilirubin 0.00 0.00 Indirect Bilirubin 0.6 0.3 Aspartate Amino Transf (AST/SGOT) 29 33 Alanine Aminotransferase (ALT/SGPT) 15 24 Alkaline Phosphatase 110 90 Total Protein 9.0 H 7.4 # Albumin 4.8 3.9 Globulin 4.20 H 3.50 H Albumin/Globulin Ratio 1.14 1.11 Hemoglobin A1c 5.0 Magnesium Level 1.9 Iron Level 62 Total Iron Binding Capacity 371 Percent Iron Saturation 17 L Ferritin 125.0 Triglycerides Level 131 Cholesterol Level 166 LDL Cholesterol, Calculated 91 HDL Cholesterol 49 Cholesterol/HDL Ratio 3.3 Thyroid Stimulating Hormone (TSH) 1.780 Subjective 24 Hr Interval Summary Free Text/Dictation Awaiting ankle surgery Exam/Review of Systems Exam Vitals Vital Signs Date Temp Pulse Resp B/P (MAP) Pulse Ox O2 O2 Flow FiO2 Time Delivery Rate 10/09/18 98.0 78 18 110/77 97 Room Air 07:51 (88) Intake and Output 10/08/18 10/08/18 10/09/18 1515:00 23:00 07:00 IntakeIntake Total 950 ml BalanceBalance 950 ml Constitutional: alert, oriented, well developed Psych: no complaints, nl mood/affect Head: normocephalic, atraumatic Eyes: nl conjunctiva, EOMI, nl lids, nl sclera, PERRL ENMT: nl external ears & nose, nl lips & teeth, nl nasal mucosa & septum Neck: supple, non-tender Respiratory: clear to auscultation, normal air movement Cardiovascular: regular rate and rhythm, nl pulses Gastrointestinal: soft, nl liver, spleen, non-tender Musculoskeletal: nl extremities to inspection, nl gait and stance Extremities: normal pulses 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, nl mental status, nl speech, nl strength Skin: nl turgor; No rash or lesions Lymph: nl lymph nodes Results Results 24hrs Laboratory Tests Test 10/08/18 18:14 10/09/18 04:28 White Blood Count 5.0 5.0 Red Blood Count 3.85 #L 3.30 L Hemoglobin 11.3 #L 9.6 L Hematocrit 34.0 #L 29.2 L Mean Corpuscular Volume 88.3 88.5 Mean Corpuscular Hemoglobin 29.4 29.1 Mean Corpuscular Hemoglobin Concent 33.2 32.9 Red Cell Distribution Width 14.8 H 14.8 H Platelet Count 343 # 316 Mean Platelet Volume 10.9 H 11.0 H Immature Granulocytes % 0.200 0.200 Neutrophils % 33.3 L Segmented Neutrophils % (Manual) 41 Lymphocytes % 56.2 H Lymphocytes % (Manual) 53 H Reactive Lymphocytes % (Manual) 2 H Monocytes % 6.5 Monocytes % (Manual) 3 Eosinophils % 3.4 Basophils % 0.4 Basophils % (Manual) 1 Nucleated Red Blood Cells % 0.0 0.0 Immature Granulocytes # 0.010 0.010 Neutrophils # 1.7 Lymphocytes (Manual) 2.6 Lymphocytes # 2.8 Reactive Lymphocytes # 0.1 H Monocytes # 0.3 Monocytes # (Manual) 0.1 L Eosinophils # 0.2 Basophils # 0.0 Basophils # (Manual) 0.0 Nucleated Red Blood Cells # 0.0 Platelet Estimate NORMAL Giant Platelets 1 H Prothrombin Time 12.7 Prothrombin Time Ratio 1.0 INR International Normalized Ratio 0.94 Activated Partial Thromboplast Time 29.1 Sodium Level 142 142 Potassium Level 3.2 L 3.9 Chloride Level 103 106 Carbon Dioxide Level 27 24 Anion Gap 12 12 Blood Urea Nitrogen 20 18 Creatinine 0.88 0.78 Est Glomerular Filtrat Rate mL/min > 60 > 60 Glucose Level 130 89 # Calcium Level 10.6 H 9.6 Total Bilirubin 0.6 0.3 Direct Bilirubin 0.00 0.00 Indirect Bilirubin 0.6 0.3 Aspartate Amino Transf (AST/SGOT) 29 33 Alanine Aminotransferase (ALT/SGPT) 15 24 Alkaline Phosphatase 110 90 Total Protein 9.0 H 7.4 # Albumin 4.8 3.9 Globulin 4.20 H 3.50 H Albumin/Globulin Ratio 1.14 1.11 Hemoglobin A1c 5.0 Magnesium Level 1.9 Iron Level 62 Total Iron Binding Capacity 371 Percent Iron Saturation 17 L Ferritin 125.0 Triglycerides Level 131 Cholesterol Level 166 LDL Cholesterol, Calculated 91 HDL Cholesterol 49 Cholesterol/HDL Ratio 3.3 Thyroid Stimulating Hormone (TSH) 1.780 Medications Medication Current Medications Ondansetron HCl (Zofran Inj) 4 mg BRIDGE ORDER PRN IV NAUSEA/VOMITING; Start 10/08/18 at 19:30; Stop 10/09/18 at 19:29 Acetaminophen (Tylenol Tab) 650 mg ER BRIDGE PRN PO .MILD PAIN 1-3 OR TEMP Last administered on 10/08/18at 20:16; Admin Dose 650 MG; Start 10/08/18 at 19:30; Stop 10/09/18 at 19:29 IV Flush (NS 3 ml) 3 ml PER PROTOCOL IV ; Start 10/08/18 at 20:00 Ondansetron HCl (Zofran Tab) 4 mg Q6H PRN PO NAUSEA/VOMITING; Start 10/08/18 at 20:00 Acetaminophen (Tylenol Tab) 650 mg Q6H PRN PO .PAIN 1-3 OR TEMP; Start 10/08/18 at 20:00 Acetaminophen/ Hydrocodone Bitart ([place] (5/325)) 1 tab Q6H PRN PO .MOD PAIN 4- 6 Last administered on 10/09/18at 09:16; Admin Dose 1 TAB; Start 10/08/18 at 20:00 Docusate Sodium (Colace) 100 mg Q12H PRN PO .CONSTIPATION; Start 10/08/18 at 20:00 Bisacodyl (Dulcolax) 5 mg DAILY PRN PO .CONSTIPATION; Start 10/08/18 at 20:00 Sodium Chloride 1,000 ml @ 75 mls/hr [id number] IV Last administered on 10/09/18at 09:12; Admin Dose 75 MLS/HR; Start 10/09/18 at 09:00 Hydromorphone HCl (Dilaudid) 0.5 mg Q4H PRN IV SEVERE PAIN LEVEL 7-10; Start 10/08/18 at 20:00 Docusate Sodium (Colace) 100 mg BID PO Last administered on 10/09/18at 09:10; Admin Dose 100 MG; Start 10/09/18 at 09:00 Duloxetine HCl (Cymbalta) 60 mg DAILY PO Last administered on 10/09/18 09:11; Admin Dose 60 MG; Start 10/09/18 at 09:00 Losartan Potassium (Cozaar) 100 mg DAILY PO Last administered on 10/09/18 09:12; Admin Dose 100 MG; Start 10/09/18 at 09:00 ANGIE WEINSTEIN MD Oct 09, 2018 15:44
[2018-10-09 16:08] VITALS: BP 111/66; PULSE 75; RESP 18
[2018-10-09] MEDS ORDERED: POLYMYXIN/BACITRACIN 1L IRRIG ONE (20:02)
[2018-10-09] MEDS ORDERED: BACITRACIN/POLYMYXIN 28.35 GM OINT TOP ONE (20:02)
--- NOTE | 2018-10-09 20:03 | PREAC ---
Date/Time of Note Date/Time of Note DATE: 10/09/18 TIME: 20:00 Anesthesia Eval and Record Evaluation Time Pre-Procedure Interview DATE: 10/09/18 TIME: 20:00 Age 57 Sex female NPO: 8 hrs Preoperative diagnosis ankle fx Planned procedure orif Past Medical History Past Medical History: Includes Cardio: HTN Heme: Anemia Psych: Depression, Anxiety Surgery & Anesthesia Issues No known issue Meds Anticoagulation: No Beta Livan within 24 hr: Yes Reason Beta Livan not given: Pt. not on B-Livan Active Scripts [Hydrocortisone Supp] 25 MG SUPP No Conflict Check, 25 MG [place] BID for 14 Days, #3 0 Prov:SHABNAM FONSECA MD 09/22/18 Polyethylene Glycol* (Miralax*) 17 Gm Powd.pack, 17 GM PO DAILY for 30 Days, #30 BOX Prov:SHABNAM FONSECA MD 09/22/18 Reported Medications Calcium Carbonate/Vitamin D3 ([place] 500+D Tablet) 1 Each Tablet, 1 EACH PO DAILY, TAB 10/08/18 Multivitamins* (Theragran*) 1 Tab Tab, 1 TAB PO DAILY, TAB 10/08/18 Propranolol Hcl* (Propranolol Hcl*) 40 Mg Tablet, 40 MG PO BID for 30 Days, #120 TAKE 1 TABLET BY ORAL ROUTE 2 TIMES EVERY DAY X 1 WK THEN 2 TABLETS BY MOUTH TWICE A DAY 10/08/18 Losartan Potassium* (Losartan Potassium*) 100 Mg Tablet, 100 MG PO DAILY for 30 Days 10/08/18 Polyethylene Glycol 3350 ([id number]) 238 Gm Powder, 17 GM PO DAILY for 30 Days TAKE (17G) BY ORAL ROUTE EVERY DAY MIXED WITH 8 OZ. WATER, JUICE, SODA, COFFEE OR TEA 10/08/18 Docusate Sodium* (Docusate Sodium*) 100 Mg Capsule, 100 MG PO BID for 30 Days, #60 TAKE 1 CAPSULE BY ORAL ROUTE TWICE A DAY NEEDED 10/08/18 Ibuprofen* (Ibuprofen*) 600 Mg Tablet, 600 MG PO Q6H PRN for PAIN LEVEL 1-5, TAB 10/08/18 Duloxetine Hcl* (Duloxetine Hcl*) 60 Mg Capsule.dr, 60 MG PO DAILY for 30 Days 10/08/18 Current Medications IV Flush (NS 3 ml) 3 ml PER PROTOCOL IV ; Start 10/08/18 at 20:00 Ondansetron HCl (Zofran Tab) 4 mg Q6H PRN PO NAUSEA/VOMITING; Start 10/08/18 at 20:00 Acetaminophen (Tylenol Tab) 650 mg Q6H PRN PO .PAIN 1-3 OR TEMP; Start 10/08/18 at 20:00 Acetaminophen/ Hydrocodone Bitart ([place] (5/325)) 1 tab Q6H PRN PO .MOD PAIN 4- 6 Last administered on 10/09/18at 09:16; Admin Dose 1 TAB; Start 10/08/18 at 20:00 Docusate Sodium (Colace) 100 mg Q12H PRN PO .CONSTIPATION; Start 10/08/18 at 20:00 Bisacodyl (Dulcolax) 5 mg DAILY PRN PO .CONSTIPATION; Start 10/08/18 at 20:00 Sodium Chloride 1,000 ml @ 75 mls/hr [id number] IV Last administered on 10/09/18at 09:12; Admin Dose 75 MLS/HR; Start 10/09/18 at 09:00 Hydromorphone HCl (Dilaudid) 0.5 mg Q4H PRN IV SEVERE PAIN LEVEL 7-10; Start 10/08/18 at 20:00 Docusate Sodium (Colace) 100 mg BID PO Last administered on 10/09/18at 09:10; Admin Dose 100 MG; Start 10/09/18 at 09:00 Duloxetine HCl (Cymbalta) 60 mg DAILY PO Last administered on 10/09/18at 09:11; Admin Dose 60 MG; Start 10/09/18 at 09:00 Losartan Potassium (Cozaar) 100 mg DAILY PO Last administered on 10/09/18at 09:12; Admin Dose 100 MG; Start 10/09/18 at 09:00 Meds reviewed: Yes Allergies Coded Allergies: morphine (Unverified Allergy, Mild, 10/08/18) ITCHING Allergies Reviewed: Yes Labs/Studies Labs Reviewed: Reviewed by anesthesiologist Result Diagram: 10/09/18 0428 10/09/18 0428 Laboratory Tests 10/09/18 04:28 test: N/A Pre-procedure Exam Last vitals Vital Signs Date Temp Pulse Resp B/P (MAP) Pulse Ox O2 O2 Flow FiO2 Time Delivery Rate 10/09/18 98.0 75 18 111/66 100 Room Air 16:08 (81) Airway: Adequate mouth opening, Adequate thyromental dist Mallampati: Mallampati IV Teeth: Normal Lung: Normal Heart: Normal ASA Physical Status ASA physical status: 3 Emergency: None Pre-operative Attestations Prior to commencing anesthesia and surgery, the patient was re-evaluated, there was verification of: *The patient's identity *The results of appropriate recent lab work and preoperative vital signs *The above evaluation not changing prior to induction *Anesthetic plan, risk benefits, alternative and complications discussed with patient/family; questions answered; patient/family understands, accepts and wishes to proceed. WOLFGANG HORNE DO Oct 09, 2018 20:03
[2018-10-09] MEDS ORDERED: MIDAZOLAM 1 MG/ML 2 ML INJ ONE (20:10)
[2018-10-09] MEDS ORDERED: ROCURONIUM 50 MG INJ ONE ×2 (20:10→20:49)
[2018-10-09] MEDS ORDERED: PROPOFOL 20 ML ONE (20:10)
[2018-10-09] MEDS ORDERED: LIDOCAINE 1% (MDV) 20 ML INJ ONE (20:10)
[2018-10-09] MEDS ORDERED: hydrALAzine 20 MG INJ IV PRN (20:30)
[2018-10-09] MEDS ORDERED: HYDROmorphONE 1 MG/5 ML IV SYRINGE IV PRN ×3 (20:30)
[2018-10-09] MEDS ORDERED: LABETALOL HCL 20MG INJ IV PRN (20:30)
[2018-10-09] MEDS ORDERED: ONDANSETRON 4 MG INJ IV PRN (20:30)
--- NOTE | 2018-10-09 20:33 | CONS ---
Assessment/Plan Assessment/Plan Assessment/Plan (Daily) Pt with ankle fracture dislocated that is completely dislocated still, now 1 month out from injury - to OR tonight for EX Fix and possible ORIF of fibula and tibial pilon - NWB to the RLE - NPO - IVF --- Donald CHAN MD Consultation Date/Type/Reason Admit Date/Time Oct 08, 2018 at 19:01 Initial Consult Date 10/08/18 Type of Consult Orthopedic Surgery Date/Time of Note DATE: 10/09/18 TIME: 20:31 24 HR Interval Summary Free Text/Dictation Patient's pain is well controlled today Exam/Review of Systems Exam Vitals Vital Signs Date Temp Pulse Resp B/P (MAP) Pulse Ox O2 O2 Flow FiO2 Time Delivery Rate 10/09/18 98.0 75 18 111/66 100 Room Air 16:08 (81) Intake and Output 10/08/18 10/08/18 10/09/18 1515:00 23:00 07:00 IntakeIntake Total 950 ml BalanceBalance 950 ml Musculoskeletal: other (RLE/ Splint intact, toes wwp, cr brisk, silt to the exposed toes that wiggle) Results Result Diagram: 10/09/18 0428 10/09/18 0428 Results 24hrs Laboratory Tests Test 10/09/18 04:28 White Blood Count 5.0 Red Blood Count 3.30 L Hemoglobin 9.6 L Hematocrit 29.2 L Mean Corpuscular Volume 88.5 Mean Corpuscular Hemoglobin 29.1 Mean Corpuscular Hemoglobin Concent 32.9 Red Cell Distribution Width 14.8 H Platelet Count 316 Mean Platelet Volume 11.0 H Immature Granulocytes % 0.200 Neutrophils % 33.3 L Lymphocytes % 56.2 H Monocytes % 6.5 Eosinophils % 3.4 Basophils % 0.4 Nucleated Red Blood Cells % 0.0 Immature Granulocytes # 0.010 Neutrophils # 1.7 Lymphocytes # 2.8 Monocytes # 0.3 Eosinophils # 0.2 Basophils # 0.0 Nucleated Red Blood Cells # 0.0 Sodium Level 142 Potassium Level 3.9 Chloride Level 106 Carbon Dioxide Level 24 Anion Gap 12 Blood Urea Nitrogen 18 Creatinine 0.78 Est Glomerular Filtrat Rate mL/min > 60 Glucose Level 89 # Hemoglobin A1c 5.0 Calcium Level 9.6 Magnesium Level 1.9 Iron Level 62 Total Iron Binding Capacity 371 Percent Iron Saturation 17 L Ferritin 125.0 Total Bilirubin 0.3 Direct Bilirubin 0.00 Indirect Bilirubin 0.3 Aspartate Amino Transf (AST/SGOT) 33 Alanine Aminotransferase (ALT/SGPT) 24 Alkaline Phosphatase 90 Total Protein 7.4 # Albumin 3.9 Globulin 3.50 H Albumin/Globulin Ratio 1.11 Triglycerides Level 131 Cholesterol Level 166 LDL Cholesterol, Calculated 91 HDL Cholesterol 49 Cholesterol/HDL Ratio 3.3 Thyroid Stimulating Hormone (TSH) 1.780 Medications Medication Current Medications IV Flush (NS 3 ml) 3 ml PER PROTOCOL IV ; Start 10/08/18 at 20:00 Ondansetron HCl (Zofran Tab) 4 mg Q6H PRN PO NAUSEA/VOMITING; Start 10/08/18 at 20:00 Acetaminophen (Tylenol Tab) 650 mg Q6H PRN PO .PAIN 1-3 OR TEMP; Start 10/08/18 at 20:00 Acetaminophen/ Hydrocodone Bitart ([place] (5/325)) 1 tab Q6H PRN PO .MOD PAIN 4- 6 Last administered on 10/09/18at 09:16; Admin Dose 1 TAB; Start 10/08/18 at 20:00 Docusate Sodium (Colace) 100 mg Q12H PRN PO .CONSTIPATION; Start 10/08/18 at 20:00 Bisacodyl (Dulcolax) 5 mg DAILY PRN PO .CONSTIPATION; Start 10/08/18 at 20:00 Sodium Chloride 1,000 ml @ 75 mls/hr [id number] IV Last administered on 10/09/18at 09:12; Admin Dose 75 MLS/HR; Start 10/09/18 at 09:00 Hydromorphone HCl (Dilaudid) 0.5 mg Q4H PRN IV SEVERE PAIN LEVEL 7-10; Start 10/08/18 at 20:00 Docusate Sodium (Colace) 100 mg BID PO Last administered on 10/09/18at 09:10; Admin Dose 100 MG; Start 10/09/18 at 09:00 Duloxetine HCl (Cymbalta) 60 mg DAILY PO Last administered on 10/09/18at 09:11; Admin Dose 60 MG; Start 10/09/18 at 09:00 Losartan Potassium (Cozaar) 100 mg DAILY PO Last administered on 10/09/18at 09:12; Admin Dose 100 MG; Start 10/09/18 at 09:00 Hydromorphone HCl (Dilaudid) 0.2 mg PACU PRN IV MILD PAIN 1-3; Start 10/09/18 at 20:30; Stop 10/10/18 at 02:00 Hydromorphone HCl (Dilaudid) 0.4 mg PACU PRN IV MOD PAIN 4-6; Start 10/09/18 at 20:30; Stop 10/10/18 at 02:00 Hydromorphone HCl (Dilaudid) 0.6 mg PACU PRN IV SEVERE PAIN 7-10; Start 10/09/18 at 20:30; Stop 10/10/18 at 02:00 Ondansetron HCl (Zofran Inj) 4 mg PACU ORDER PRN IV NAUSEA/VOMITING; Start 10/09/18 at 20:30; Stop 10/10/18 at 02:00 Labetalol HCl (Labetalol) 5 mg PACU ORDER PRN IV HIGH BLOOD PRESSURE; Start 10/09/18 at 20:30; Stop 10/10/18 at 02:00 Hydralazine HCl (Apresoline) 5 mg PACU ORDER PRN IV HIGH BLOOD PRESSURE; Start 10/09/18 at 20:30; Stop 10/10/18 at 02:00 KENYETTA CHAN MD Oct 09, 2018 20:33
[2018-10-09 20:38] VITALS: BP 133/79; PULSE 72; RESP 18
[2018-10-09] MEDS ORDERED: CEFAZOLIN 1 GM INJ ONE (20:46)
[2018-10-09] MEDS ORDERED: DEXAMETHASONE 4 MG/ML 5 ML INJ ONE ×2 (20:52→22:57)
[2018-10-09] MEDS ORDERED: ONDANSETRON 4 MG INJ ONE (20:52)
[2018-10-09] MEDS ORDERED: ROPIVACAINE 0.5 % 30 ML VIAL ONE (22:57)
--- NOTE | 2018-10-09 23:35 | OPR ---
Date/Time of Note Date/Time of Note DATE: 10/09/18 TIME: 23:35 Operative Report Procedure Date: Oct 09, 2018 Preoperative Diagnosis Right ankle tibial pilon and fibula fracture dislocation Right ankle syndesmosis disruption Postoperative Diagnosis Right ankle tibial pilon and fibula fracture dislocation Right ankle syndesmosis disruption Operation/Procedure Performed Right ankle tibial pilon and fibula fracture dislocation ORIF Right ankle syndesmosis disruption ORIF Placement of amniotic memory Surgeon Hussain Chan MD Manager Radio none Anesthesia Type: general, other (popliteal and adductor) Anesthesiologist: WOLFGANG HORNE DO Tourniquet Time: 120 min at 250 mm HG Estimated Blood Loss: minimal Transfusion none Specimen none Grafts/Implants Arthrex distal fibular locking plate with syndesmotic 3.5 mm stainless steel screw and 2 4.0 mm partially-threaded cannulated Synthes screws. Complications none Pt Condition Post Procedure: stable Disposition: PACU Indications Patient is a 57-year-old female sustained a right ankle fracture dislocation approximately 4 weeks ago. Patient initially went to the emergency room and was not reduced and was not put on any sort of splint that maintained any reduction and was sent for follow-up to her PCP who then referred her to me however it took her approximately 3 weeks longer to then get into my office due to insuranc e issues. Given her fracture dislocation patient was admitted from the emergency room for urgent reduction and open reduction internal fixation Risk Note: Patient was explained the risks and benefits of surgery and the patient's [place] language including not limited to infection, bleeding, injury to blood vessels, nerves, ligaments or tendons. Risks of anesthesia, deep vein thrombosis and need for reduce future surgery. Patient acknowledged these risk by signing the surgical consent form. Procedure Description The patient was met in the preoperative holding area, marked with the correct operative extremity confirmed with both patient and consent. The patient was then brought back in the operative theater, placed supine on operative table, given preoperative antibiotics and preoperative regional block anesthesia. all bony prominences well padded with a nonsterile tourniquet placed on the operative extremity. The patient was then prepped and draped in the normal sterile fashion. All parties in the room did a timeout and everyone agreed it was the correct patient, and extremity and procedure. Attention was then turned initially to the distal fibular fracture. An incision was made over the the fibula. The incision was taken down to the fibula with care taken to avoid injury to the neurovascular structures. The fracture was identified and given the excessive length of time there was also excessive callus seen. The extensive callus was debrided removed and then the ankle fracture was brought out to length and alignment using a push pull getting excessive amount of distraction and I was able then to reduce the ankle fracture and held in place with K wires. The ankle joint was irrigated thoroughly and there was found to be loose bodies in the ankle joint which were removed. Fluoroscopy showed the ankle to be in a well reduced position. There was then fixated with a distal fibular plate with distal locking screws and proximal cortical screws and fibula was reduced and shown to be out to correct fibular length and alignment and rotation had been re-achieved. Once this was shown, the wound was irrigated thoroughly. A manual external rotation stress xray was performed showing syndesmosis widening. A syndesmotic screw was then placed across the joint to reduce the syndesmosis. Attention was then brought over to the medial aspect of the ankle and incision was taken down over the medial aspect of the ankle where there was shown to be a a distal tibial peel on fracture that was a variant. The fracture was identified and curetted and cleaned out of all callus. The ankle joint was irrigated thoroughly again and the fracture was reduced and held in place with K wires and then fixated with 2 partially-threaded 4.0 millimeter screws with w ashers. All wounds were thoroughly irrigated and DBM and bone graft was placed over the medial and lateral fracture and then an amniotic membrane was placed over both fractures. Wounds were closed with initially 2-0 Vicryl, followed by 3-0 Monocryl followed by 3-0 nylon in a vertical mattress fashion. All wounds were dressed with Xeroform, antibiotic ointment, 4 x 4s, 5 ABDs were placed and the patient was placed in a well-padded short leg splint. Tourniquet had been brought down prior to this and hemostasis had been achieved prior to the wound closure. The wounds were irrigated thoroughly prior to closure as well. All sponge and needle counts were correct. Modifier 22 note: The extensive and excessive length of time of the fracture was now reduced and dislocated approximately 4 weeks this created extensively more difficult fracture reduction situation leading to greater deal of time of approximately 1 hour to reduce the ankle fracture obtain the length alignment and rotation. Given the 4-week interval from ankle fracture dislocation to surgery and presentation the case would require a modifier 22 to compensate for the extensively complex fracture situation that was encountered creating a longer surgery and more complicated surgical picture. HUSSAIN CHAN MD Oct 09, 2018 23:35
[2018-10-09] MEDS ORDERED: ROPIVACAINE 0.2% 20 ML VIAL ONE (23:38)
[2018-10-09] MEDS ORDERED: SUGAMMADEX SODIUM 200 MG/2 ML VIAL IV ONE (23:44)
[2018-10-09 23:55] VITALS: BP 137/81; PULSE 97; RESP 15
[2018-10-10] VITALS (24 sets, daily range): BP systolic 103–148; BP diastolic 73–87; PULSE 78–99; RESP 14–24
[2018-10-10] MEDS ORDERED: ERGOCALCIFEROL 50,000 UNIT CAP PO ONE
[2018-10-10] MEDS ORDERED: CHOLECALCIFEROL 2,000 UNIT CAP PO ONE
[2018-10-10] MEDS ORDERED: CEFAZOLIN 1 GM/50 ML (PMX) 50 ML IVPB SCH
[2018-10-10] MEDS ORDERED: morphine 10 MG INJ IV PRN
[2018-10-10] MEDS ORDERED: MAGNESIUM HYDROXIDE 30ML CUP PO PRN
[2018-10-10] MEDS ORDERED: ONDANSETRON 4 MG INJ IV PRN
[2018-10-10] MEDS ORDERED: CEFAZOLIN 1 GM INJ IV SCH
[2018-10-10] MEDS: SOD CHLORIDE 0.9% 1,000 ML IV SCH ×2 (00:07→13:11)
--- NOTE | 2018-10-10 00:12 | PAC ---
Date/Time of Note Date/Time of Note DATE: 10/10/18 TIME: 00:11 Post-Anesthesia Notes Post-Anesthesia Note Last documented vital signs Vital Signs Date Temp Pulse Resp B/P (MAP) Pulse Ox O2 O2 Flow FiO2 Time Delivery Rate 10/10/18 98 75 18 125/65 100 0011 10/09/18 Room Air 16:08 Activity: WNL Respiratory function: WNL Cardiovascular function: WNL Mental status: Baseline Pain reasonably controlled: Yes Hydration appropriate: Yes Nausea/Vomiting absent: Yes WOLFGANG HORNE DO Oct 10, 2018 00:12
[2018-10-10] MEDS: OXYCODONE/ACETAMINOPHEN (5/325) TAB PO PRN ×4 (03:34→18:14)
[2018-10-10] MEDS: CEFAZOLIN 1 GM/50 ML (PMX) 50 ML IVPB SCH ×3 (05:21→21:14)
[2018-10-10] MEDS: DULOXETINE 30 MG CAP DR PO SCH (08:57)
[2018-10-10] MEDS: SENNA/DOCUSATE NA (8.6MG/50MG) TAB PO SCH ×2 (08:58→21:13)
[2018-10-10] MEDS: DOCUSATE SODIUM 100 MG CAP PO SCH ×2 (08:58→21:13)
[2018-10-10] MEDS: ASCORBIC ACID 500 MG TAB PO SCH (08:58)
[2018-10-10] MEDS: LOSARTAN 50 MG TAB PO SCH (08:58)
[2018-10-10] MEDS ORDERED: ASCORBIC ACID 500 MG TAB.CHEW PO SCH (09:00)
[2018-10-10] MEDS: HYDROmorphONE 0.5 MG/0.5 ML SYG IV PRN ×2 (09:03→19:39)
[2018-10-10] MEDS: DIPHENHYDRAMINE 25 MG CAP PO PRN ×2 (10:42→18:14)
--- NOTE | 2018-10-10 14:34 | PN ---
Date/Time of Note Date/Time of Note DATE: 10/10/18 TIME: 14:34 Assessment/Plan Lines/Catheters IV Catheter Type (from Nrsg): Peripheral IV Montes in Place (from Nrsg): No Assessment/Plan Assessment/Plan POD# 1 s/p Right ankle tibial pilon and fibula fracture dislocation ORIF Right ankle syndesmosis disruption ORIF Placement of amniotic membrane -- NWB to the RLE - PT TO GT - Case mgmt - ASA 81 mg po BID for DVT prophx - SCDs - Teds - DC home today when cleared by PT - PO pain control - FU with me in One week at [facility] [place] ---- Donald Chan MD Subjective 24 Hr Interval Summary Doing well. Pain controlled Exam/Review of Systems Vital Signs Vitals Vital Signs Date Temp Pulse Resp B/P (MAP) Pulse Ox O2 O2 Flow FiO2 Time Delivery Rate 10/12/18 98.8 75 15 143/93 100 Room Air 07:10 (110) Exam Constitutional: alert, oriented, well developed Musculoskeletal: other (RLE/ Splint intact, toes wiggle, silt to the exposed toes, CR brisk) KENYETTA CHAN MD Oct 10, 2018 14:34
--- NOTE | 2018-10-10 16:08 | PN ---
Date/Time of Note Date/Time of Note DATE: 10/10/18 TIME: 16:07 Assessment/Plan VTE Prophylaxis Risk score (from Nsg)>0 risk: 6 SCD applied (from Nsg): Yes Pharmacological prophylaxis: heparin Lines/Catheters IV Catheter Type (from Nrsg): Peripheral IV Urinary Cath still in place: No Assessment/Plan Hospital Course 57 yo female wtih ankle fracture - perii-operative management per Dr Barros - DVT ppx - Pain control Result Diagram: 10/09/1842710/09/18427 Subjective 24 Hr Interval Summary Free Text/Dictation Patient doesn't feel ready to go home yet, not steady on her feet Surgery yesterday successful Exam/Review of Systems Exam Vitals Vital Signs Date Temp Pulse Resp B/P (MAP) Pulse Ox O2 O2 Flow FiO2 Time Delivery Rate 10/10/18 98.0 99 18 123/73 94 Room Air 14:38 (90) Intake and Output 10/09/18 10/09/18 10/10/18 1515:00 23:00 07:00 IntakeIntake Total 680 ml 2745 ml OutputOutput Total 1100 ml 810 ml BalanceBalance -420 ml 1935 ml Medications Medication Current Medications IV Flush (NS 3 ml) 3 ml PER PROTOCOL IV ; Start 10/08/18 at 20:00 Ondansetron HCl (Zofran Tab) 4 mg Q6H PRN PO NAUSEA/VOMITING; Start 10/08/18 at 20:00 Acetaminophen (Tylenol Tab) 650 mg Q6H PRN PO .PAIN 1-3 OR TEMP; Start 10/08/18 at 20:00 Acetaminophen/ Hydrocodone Bitart ([place] (5/325)) 1 tab Q6H PRN PO .MOD PAIN 4- 6 Last administered on 10/09/18at 09:16; Admin Dose 1 TAB; Start 10/08/18 at 20:00 Docusate Sodium (Colace) 100 mg Q12H PRN PO .CONSTIPATION; Start 10/08/18 at 20:00 Bisacodyl (Dulcolax) 5 mg DAILY PRN PO .CONSTIPATION; Start 10/08/18 at 20:00 Sodium Chloride 1,000 ml @ 75 mls/hr [id number] IV Last administered on 10/10/18at 13:11; Admin Dose 75 MLS/HR; Start 10/09/18 at 09:00 Hydromorphone HCl (Dilaudid) 0.5 mg Q4H PRN IV SEVERE PAIN LEVEL 7-10 Last administered on 10/10/18 09:03; Admin Dose 0.5 MG; Start 10/08/18 at 20:00 Docusate Sodium (Colace) 100 mg BID PO Last administered on 10/10/18 08:58; Admin Dose 100 MG; Start 10/09/18 at 09:00 Duloxetine HCl (Cymbalta) 60 mg DAILY PO Last administered on 10/10/18 08:57; Admin Dose 60 MG; Start 10/09/18 at 09:00 Losartan Potassium (Cozaar) 100 mg DAILY PO Last administered on 10/10/18 08:58; Admin Dose 100 MG; Start 10/09/18 at 09:00 Senna/Docusate Sodium (Senokot-S) 1 tab BID PO Last administered on 10/10/18 08:58; Admin Dose 1 TAB; Start 10/10/18 at 09:00 Simethicone (Mylicon) 80 mg TID PRN PO DISTENSION/GAS/BLOATING; Start 10/10/18 at 00:00 Magnesium Hydroxide (Milk Of Mag) 30 ml BID PRN PO CONSTIPATION; Start 10/10/18 at 00:00 Oxycodone/ Acetaminophen (Percocet (5/ 325)) 2 tab Q4H PRN PO PAIN Last administered on 10/10/18 14:11; Admin Dose 2 TAB; Start 10/10/18 at 00:00 Ondansetron HCl (Zofran Inj) 4 mg Q4H PRN IV NAUSEA AND/OR VOMITING; Start 10/10/18 at 00:00 Diphenhydramine HCl (Benadryl) 25 mg Q4H PRN PO ITCHING Last administered on 10/10/18 10:42; Admin Dose 25 MG; Start 10/10/18 at 00:00 Rivaroxaban (Xarelto) 10 mg WITH DINNER PO ; Start 10/10/18 at 17:55 Ascorbic Acid (Vitamin C) 1,000 mg DAILY PO Last administered on 10/10/18 08:58; Admin Dose 1,000 MG; Start 10/10/18 at 09:00 Cefazolin Sodium 50 ml @ 100 mls/hr Q8H IVPB Last administered on 10/10/18at 13:11; Admin Dose 100 MLS/HR; Start 10/10/18 at 05:00; Stop 10/11/18 at 21:29 ANGIE WEINSTEIN MD Oct 10, 2018 16:08
[2018-10-10] MEDS: RIVAROXABAN 10 MG TABLET PO SCH (18:15)
[2018-10-10] MEDS ORDERED: HYDROmorphONE 0.5 MG/0.5 ML SYG IV STA (20:34)
[2018-10-10] MEDS ORDERED: DIPHENHYDRAMINE 50 MG INJ ONE (20:55)
[2018-10-10] MEDS ORDERED: DIPHENHYDRAMINE 50 MG INJ IV ONE (21:00)
[2018-10-10] MEDS ORDERED: HYDROCODONE/APAP (10/325) TAB PO ONE (21:00)
[2018-10-10] MEDS ORDERED: LORAZEPAM 2 MG INJ IV ONE (22:30)
[2018-10-11] MEDS: DIPHENHYDRAMINE 25 MG CAP PO PRN (00:17)
[2018-10-11] MEDS: OXYCODONE/ACETAMINOPHEN (5/325) TAB PO PRN ×6 (00:20→22:14)
[2018-10-11 02:15] VITALS: BP 139/82; PULSE 79; RESP 19
[2018-10-11] MEDS: CEFAZOLIN 1 GM/50 ML (PMX) 50 ML IVPB SCH ×3 (04:55→21:03)
[2018-10-11 07:18] VITALS: BP 128/80; PULSE 80; RESP 18
[2018-10-11] MEDS: SENNA/DOCUSATE NA (8.6MG/50MG) TAB PO SCH ×2 (09:31→21:03)
[2018-10-11] MEDS: DULOXETINE 30 MG CAP DR PO SCH (09:31)
[2018-10-11] MEDS: DOCUSATE SODIUM 100 MG CAP PO SCH ×2 (09:31→21:03)
[2018-10-11] MEDS: ASCORBIC ACID 500 MG TAB PO SCH (09:31)
[2018-10-11] MEDS: LOSARTAN 50 MG TAB PO SCH (09:32)
[2018-10-11 14:42] VITALS: BP_SYST 132; BP_SYST 232; BP_DIAS 82; PULSE 82; RESP 18
--- NOTE | 2018-10-11 15:07 | PN ---
Date/Time of Note Date/Time of Note DATE: 10/11/18 TIME: 15:06 Assessment/Plan VTE Prophylaxis Risk score (from Nsg)>0 risk: 9 SCD applied (from Nsg): Yes Pharmacological prophylaxis: heparin Lines/Catheters IV Catheter Type (from Nrsg): Sal[place] Lock Urinary Cath still in place: No Assessment/Plan Hospital Course 57 yo female wtih ankle fracture - perii-operative management per Dr Barros - DVT ppx - Pain control Result Diagram: 10/09/1842710/09/18427 Subjective 24 Hr Interval Summary Free Text/Dictation Not yet ready for discharge per PT Exam/Review of Systems Exam Vitals Vital Signs Date Temp Pulse Resp B/P (MAP) Pulse Ox O2 O2 Flow FiO2 Time Delivery Rate 10/11/18 98.0 82 18 232/82 90 Room Air 14:42 (132) Intake and Output 10/10/18 10/10/18 10/11/18 1414:59 22:59 06:59 IntakeIntake Total 1355 ml 1170 ml 100 ml OutputOutput Total 200 ml BalanceBalance 1155 ml 1170 ml 100 ml Medications Medication Current Medications IV Flush (NS 3 ml) 3 ml PER PROTOCOL IV ; Start 10/08/18 at 20:00 Ondansetron HCl (Zofran Tab) 4 mg Q6H PRN PO NAUSEA/VOMITING; Start 10/08/18 at 20:00 Acetaminophen (Tylenol Tab) 650 mg Q6H PRN PO .PAIN 1-3 OR TEMP; Start 10/08/18 at 20:00 Acetaminophen/ Hydrocodone Bitart ([place] (5/325)) 1 tab Q6H PRN PO .MOD PAIN 4- 6 Last administered on 10/09/18at 09:16; Admin Dose 1 TAB; Start 10/08/18 at 20:00 Docusate Sodium (Colace) 100 mg Q12H PRN PO .CONSTIPATION; Start 10/08/18 at 20:00 Bisacodyl (Dulcolax) 5 mg DAILY PRN PO .CONSTIPATION; Start 10/08/18 at 20:00 Hydromorphone HCl (Dilaudid) 0.5 mg Q4H PRN IV SEVERE PAIN LEVEL 7-10 Last admi nistered on 10/10/18at 19:39; Admin Dose 0.5 MG; Start 10/08/18 at 20:00 Docusate Sodium (Colace) 100 mg BID PO Last administered on 10/11/18 09:31; Admin Dose 100 MG; Start 10/09/18 at 09:00 Duloxetine HCl (Cymbalta) 60 mg DAILY PO Last administered on 10/11/18 09:31; Admin Dose 60 MG; Start 10/09/18 at 09:00 Losartan Potassium (Cozaar) 100 mg DAILY PO Last administered on 10/11/18 09:32; Admin Dose 100 MG; Start 10/09/18 at 09:00 Senna/Docusate Sodium (Senokot-S) 1 tab BID PO Last administered on 10/11/18 09:31; Admin Dose 1 TAB; Start 10/10/18 at 09:00 Simethicone (Mylicon) 80 mg TID PRN PO DISTENSION/GAS/BLOATING; Start 10/10/18 at 00:00 Magnesium Hydroxide (Milk Of Mag) 30 ml BID PRN PO CONSTIPATION; Start 10/10/18 at 00:00 Oxycodone/ Acetaminophen (Percocet (5/ 325)) 2 tab Q4H PRN PO PAIN Last administered on 10/11/18 13:27; Admin Dose 2 TAB; Start 10/10/18 at 00:00 Ondansetron HCl (Zofran Inj) 4 mg Q4H PRN IV NAUSEA AND/OR VOMITING; Start 10/10/18 at 00:00 Diphenhydramine HCl (Benadryl) 25 mg Q4H PRN PO ITCHING Last administered on 10/11/18 00:17; Admin Dose 25 MG; Start 10/10/18 at 00:00 Rivaroxaban (Xarelto) 10 mg WITH DINNER PO Last administered on 10/10/18 18:15; Admin Dose 10 MG; Start 10/10/18 at 17:55 Ascorbic Acid (Vitamin C) 1,000 mg DAILY PO Last administered on 10/11/18 09:31; Admin Dose 1,000 MG; Start 10/10/18 at 09:00 Cefazolin Sodium 50 ml @ 100 mls/hr Q8H IVPB Last administered on 10/11/18 13:01; Admin Dose 100 MLS/HR; Start 10/10/18 at 05:00; Stop 10/11/18 at 21:29 ANGIE WEINSTEIN MD Oct 11, 2018 15:06
[2018-10-11] MEDS: RIVAROXABAN 10 MG TABLET PO SCH (18:07)
[2018-10-11 19:15] VITALS: BP 145/88; PULSE 83; RESP 18
[2018-10-12 02:05] VITALS: BP 154/89; PULSE 81; RESP 18
[2018-10-12] MEDS: OXYCODONE/ACETAMINOPHEN (5/325) TAB PO PRN (05:40)
[2018-10-12 07:10] VITALS: BP 143/93; PULSE 75; RESP 15
[2018-10-12] MEDS: DULOXETINE 30 MG CAP DR PO SCH (08:49)
[2018-10-12] MEDS: ASCORBIC ACID 500 MG TAB PO SCH (08:49)
[2018-10-12] MEDS: SENNA/DOCUSATE NA (8.6MG/50MG) TAB PO SCH (08:50)
[2018-10-12] MEDS: LOSARTAN 50 MG TAB PO SCH (08:50)
[2018-10-12] MEDS: DOCUSATE SODIUM 100 MG CAP PO SCH (08:50)
--- NOTE | 2018-10-12 14:57 | DS ---
Date/Time of Note Date/Time of Note DATE: 10/12/18 TIME: 14:56 Discharge Summary Admission/Discharge Info Admit Date/Time Oct 08, 2018 at 19:01 Discharge Date/Time Oct 12, 2018 at 14:15 Discharge Diagnosis Ankle fracture Patient Condition: Stable Hospital Course 57 yo female wtih ankle fracture - Underwent operative management per Dr Barros - DVT ppx was provided - She worked with PT. Cleared for dc home - Pain control medication was provided Home Meds Active Scripts [Hydrocortisone Supp] 25 MG SUPP No Conflict Check, 25 MG MO BID for 14 Days, #30 Prov:SHABNAM FONSECA MD 09/22/18 Polyethylene Glycol* (Miralax*) 17 Gm Powd.pack, 17 GM PO DAILY for 30 Days, #30 BOX Prov:SHABNAM FONSECA MD 09/22/18 Reported Medications Calcium Carbonate/Vitamin D3 ([place] 500+D Tablet) 1 Each Tablet, 1 EACH PO DAILY, TAB 10/08/18 Multivitamins* (Theragran*) 1 Tab Tab, 1 TAB PO DAILY, TAB 10/08/18 Propranolol Hcl* (Propranolol Hcl*) 40 Mg Tablet, 40 MG PO BID for 30 Days, #120 TAKE 1 TABLET BY ORAL ROUTE 2 TIMES EVERY DAY X 1 WK THEN 2 TABLETS BY MOUTH TWICE A DAY 10/08/18 Losartan Potassium* (Losartan Potassium*) 100 Mg Tablet, 100 MG PO DAILY for 30 Days 10/08/18 Polyethylene Glycol 3350 ([id number]) 238 Gm Powder, 17 GM PO DAILY for 30 Days TAKE (17G) BY ORAL ROUTE EVERY DAY MIXED WITH 8 OZ. WATER, JUICE, SODA, COFFEE OR TEA 10/08/18 Docusate Sodium* (Docusate Sodium*) 100 Mg Capsule, 100 MG PO BID for 30 Days, #60 TAKE 1 CAPSULE BY ORAL ROUTE TWICE A DAY NEEDED 10/08/18 Ibuprofen* (Ibuprofen*) 600 Mg Tablet, 600 MG PO Q6H PRN for PAIN LEVEL 1-5, TAB 10/08/18 Duloxetine Hcl* (Duloxetine Hcl*) 60 Mg Capsule., 60 MG PO DAILY for 30 Days 10/08/18 Primary Care Provider Not On Staff Doctor ANGIE WEINSTEIN MD Oct 12, 2018 14:57
== END 2018-10-12 14:15 | disposition home health service (06) | DRG 494 ==
LOC: E/R 17:24 → MS1 19:01
PROVIDERS: ADMIT Family Medicine; ATTEND Internal Medicine
PROC: 0QSJ04Z Reposition Right Fibula with Internal Fixation Device, Open Approach (ICD-10-PCS; 2018-10-09)
PROC: 0QSG04Z Reposition Right Tibia with Internal Fixation Device, Open Approach (ICD-10-PCS; principal; 2018-10-09 20:30)
DX: S82.871A Displaced pilon fracture of right tibia, initial encounter for closed fracture (principal); S82.831A Other fracture of upper and lower end of right fibula, initial encounter for closed fracture; E87.6 Hypokalemia; I10 Essential (primary) hypertension; D64.9 Anemia, unspecified; X58.XXXA Exposure to other specified factors, initial encounter
CPT/HCPCS: 36415; 71045; 80053; 80061; 82306; 82728; 83036; 83540; 83735; 84443; 85025; 85610; 85730; 87081; 93005; 96374; 96375; 97110; 97116; 97161; 97530; C1713; C1762; J0690; J1100; J1170; J1200; J2060; J2250; J2405; J2795; J3010; J3480; J7030

== ENCOUNTER 2018-11-20 08:43 | Day surgery (SDC) | payer OTHER ==
[~2018-11-20] VITALS: Ht 170.2 cm; Wt 69.0 kg
[~2018-11-20 08:43] MED LIST changes: +CALC1TAB79 PO; +DOCU-159 PO; +DULO60CA59 PO; +IBUP-1542 PO; +LOSA100T15 PO; +MULTI PO; +POLY238P32 PO; +PROP40TA4 PO
[2018-11-20 09:27] VITALS: Ht 170.2 cm; Wt 69.0 kg
[2018-11-20] MEDS ORDERED: POTASSIUM (09:34)
[2018-11-20] MEDS ORDERED: HCTZ (09:34)
[2018-11-20] MEDS ORDERED: IRON (09:34)
[2018-11-20 09:45] VITALS: BP 100/64; PULSE 64; RESP 15
[2018-11-20] MEDS ORDERED: MIDAZOLAM 1 MG/ML 2 ML INJ ONE ×2 (11:53)
[2018-11-20] MEDS ORDERED: FENTAnyl 50 MCG/ML VIAL ONE (11:53)
[2018-11-20 12:12] VITALS: BP 95/56; PULSE 66; RESP 18
== END 2018-11-20 13:42 | disposition home or self-care (01) ==
LOC: GIL 08:43
PROVIDERS: ATTEND Internal Medicine Gastroenterology
DX: Z12.11 Encounter for screening for malignant neoplasm of colon (principal); D12.4 Benign neoplasm of descending colon; K57.30 Diverticulosis of large intestine without perforation or abscess without bleeding; K64.8 Other hemorrhoids; I10 Essential (primary) hypertension
CPT/HCPCS: 45380; 88305; J2250; J3010; Z7610